=== PATIENT | male | born 1940 | race Caucasian/White ===

== ENCOUNTER 2017-04-28 09:14 | Inpatient (IN) | payer MEDICARE ==
[2017-04-28] VITALS (8 sets, daily range): BP systolic 124–174; BP diastolic 59–86; PULSE 73–89; RESP 15–27; TEMP 97.6–98.5; O2SAT 93–99
[~2017-04-28] VITALS: Ht 172.7 cm; Wt 45.7 kg
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
[2017-04-28] MEDS ORDERED: RESP: ALBUTEROL 2.5 MG/3 ML NEB (SCH) INH ONE (09:30)
[2017-04-28] MEDS ORDERED: SODIUM CHLORIDE 0.9% FLUSH 10 ML FLUSH IVF PRN (09:30)
[2017-04-28 09:40] LABS: AUTOMATED NEUTROPHIL # 4.7 TH/MM3 (1.8-7.7); BASOPHIL # 0.1 TH/MM3 (0-0.2); BASOPHIL % 0.8 % (0.0-2.0); EOSINOPHIL % 0.3 % (0.0-4.0); HEMATOCRIT 34.2 % (39.0-51.0); LYMPH % 16.9 % (9.0-44.0); LYMPHOCYTE # 1.1 TH/MM3 (1.0-4.8); MEAN CELL VOLUME 90.6 FL (80.0-100.0); MEAN CORPUSCULAR HGB CONC 30.9 % (32.0-36.0); MONO % 9.9 % (0.0-8.0); NEUT % 72.1 % (16.0-70.0); PLATELET COUNT 183 TH/MM3 (150-450); RED BLOOD COUNT 3.78 MIL/MM3 (4.50-5.90); RED CELL DISTRIBUTION WIDTH 19.4 % (11.6-17.2); WHITE BLOOD COUNT 6.5 TH/MM3 (4.0-11.0)
[2017-04-28 09:42] LABS: HEMO FLAGS AUTO DIFF
[2017-04-28] MEDS ORDERED: ASPIRIN 81 MG CHEW TAB PO ONE (09:45)
[2017-04-28 09:58] LABS: ANION GAP 12 MEQ/L (5-15); AST (GOT) 581 U/L (15-37); BICARBONATE 19.9 MEQ/L (21.0-32.0); BLOOD UREA NITROGEN 25 MG/DL (7-18); CHLORIDE 109 MEQ/L (98-107); GLOMERULAR FILTRATION RATE 74 ML/MIN (>89); POTASSIUM 4.6 MEQ/L (3.5-5.1); SODIUM (NA) 141 MEQ/L (136-145)
[2017-04-28 09:59] LABS: ALT (GPT) 440 U/L (12-78)
[2017-04-28 10:02] LABS: APTT (PATIENT) 27.5 SEC (24.3-30.1); INTERNATIONAL NORMALIZED RATIO 1.6 RATIO; PROTHROMBIN TIME - PATIENT 18.6 SEC (9.8-11.6)
[2017-04-28 10:03] LABS: ALKALINE PHOSPHATASE 789 U/L (45-117); CREATINE KINASE 183 U/L (39-308); TOTAL BILIRUBIN ADULT 1.1 MG/DL (0.2-1.0)
--- NOTE | 2017-04-28 10:03 | RADRPT ---
EXAM DATE/TIME: 04/28/2017 09:33 [facility] COMPARISON: No previous studies available for comparison. INDICATIONS : Short of breath. MEDICAL HISTORY : None. SURGICAL HISTORY : None. ENCOUNTER: Initial ACUITY: 1 month PAIN SCORE: 0/10 LOCATION: Bilateral chest FINDINGS: The heart is enlarged. Bibasilar patchiness (left worse than right) is noted consistent with atelect asis and/or infiltrates. CONCLUSION: 1. Bibasilar patchiness (left worse than right) consistent with atelectasis and/or pneumonia. Clinic al correlation is recommended. 2. Cardiomegaly. Jorge Alberto Ascencio MD on April 28, 2017 at 9:56 Board Certified Radiologist. This report was verified electronically.
[2017-04-28 10:17] LABS: BANDS 12 % (0-6); BASOPHILS 1 % (0-2); CORRECTED NUCLEATED RBC 2 /100 WBC (0-0); EOSINOPHILS 2 % (0-4); METAMYELOCYTES 1 % (0-1); NEUTROPHIL # MANUAL DIFF 5.5 TH/MM3 (1.8-7.7); POLYS (SEG NEUTROPHILS) 72 % (16-70); WBC DIFF SAMPLE 100
[2017-04-28 10:18] LABS: KERATOCYTES OCC (NORMAL); OVALOCYTES 1+ (NORMAL); PLATELET ESTIMATE SMEAR NORMAL (NORMAL); PLATELET MORPHOLOGY NORMAL (NORMAL)
[2017-04-28 10:19] LABS: SCAN/DIFF FINAL DIFF MANUAL
[2017-04-28 10:22] LABS: CKMB 4.6 NG/ML (0.5-3.6)
[2017-04-28] MEDS ORDERED: IOHEXOL 350 MG/ML 10 ML VIAL (for RAD DIAG) IVCONTRAST ONE (11:20)
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
--- NOTE | 2017-04-28 11:59 | RADRPT ---
EXAM DATE/TIME: 04/28/2017 11:11 [facility] COMPARISON: No previous studies available for comparison. INDICATIONS : Shortness of breath and abdomen pain IV CONTRAST: 90 cc Omnipaque 350 (iohexol) IV ; Cumulative dose for multiple exams. RADIATION DOSE: 21.15 CTDIvol (mGy) MEDICAL HISTORY : Carcinoma, prostate. Hypertension. SURGICAL HISTORY : None. ENCOUNTER: Initial ACUITY: 1 month PAIN SCALE: 5/10 LOCATION: Bilateral chest TECHNIQUE: Volumetric scanning of the chest was performed using a pulmonary embolism protocol MIP images were re constructed. Using automated exposure control and adjustment of the mA and/or kV according to patien t size, radiation dose was kept as low as reasonably achievable to obtain optimal diagnostic quality images. DICOM format image data is available electronically for review and comparison. Follow-up recommendations for detected pulmonary nodules are based at a minimum on nodule size and pa tient risk factors according to Fleischner Society Guidelines. FINDINGS: Diffuse sclerosis is noted throughout the visualized osseous structures of the thorax indicating scle rotic metastases until proven otherwise. There is no evidence of pulmonary embolism. Small to moderate sized pleural effusions with adjacent compressive atelectasis are noted. No pulmonary nodule or mass is noted. No mediastin al, hilar or axillary lymphadenopathy is noted. Coronary artery calcifications are noted. The heart is enlarged. Scattered fibrotic scarring is noted bilaterally. There is a metallic foreign body within the posteromedial a spect of the left pleural space. CONCLUSION: 1. Diffuse sclerosis involving the bony thorax indicating diffuse sclerotic metastases until proven otherwise. Clinical correlation is recommended. 2. Small to moderate sized bilateral pleural effusions with adjacent compressive atelectasis. 3. Cardiomegaly and coronary artery calcifications. 4. Scattered fibrotic scarring bilaterally. 5. Metallic foreign body within the posteromedial aspect of the left pleural space. Jorge Alberto Ascencio MD on April 28, 2017 at 11:35 Board Certified Radiologist. This report was verified electronically.
[2017-04-28] MEDS ORDERED: NALOXONE HCL 0.4 MG/ML AMP IV PUSH PRN (12:30)
[2017-04-28] MEDS ORDERED: MAGNESIUM HYDROXIDE SUSP 30 ML CUP PO PRN (12:30)
[2017-04-28] MEDS ORDERED: ACETAMINOPHEN 325 MG TAB PO PRN (12:30)
[2017-04-28] MEDS ORDERED: BISACODYL 10 MG SUPP RECTAL PRN (12:30)
[2017-04-28] MEDS ORDERED: ONDANSETRON HCL 4 MG/2 ML VIAL IVP PRN (12:30)
[2017-04-28] MEDS ORDERED: RESP: ALBUTEROL 2.5 MG/IPRATROPIUM 0.5 MG NEB (PRN) NEB (12:30)
[2017-04-28] MEDS ORDERED: SENNOSIDES 8.6 MG TAB PO PRN (12:30)
[2017-04-28] MEDS ORDERED: LACTULOSE SYRUP 20 GM/30 ML CUP PO PRN (12:30)
--- NOTE | 2017-04-28 13:09 | HHI.HP ---
HPI Service [facility] Primary Care Physician No Primary Care Physician Admission Diagnosis metastatic disease, dyspnea, elevated troponin, abnormal EKG Diagnoses: Chief Complaint: Shortness of breath Travel History International Travel<30 Days: No Contact w/Intl Traveler <30 Da: No Traveled to Known Affected Are: No History of Present Illness Written by Javier Roman, acting as scribe for Dr. Sawant on 04/28/17 at 13:09. 76-year-old male with a past medical history of prostate cancer who presented for shortness of breath. For the past month and half the patient has been having shortness of breath and dyspnea on exertion that has been getting progressively worse to where he can only walk a few steps before becoming dyspneic and weak. His only past medical history is prostate cancer for which he had a prostatectomy done in 2008 and stopped seeing doctors about 2 or 3 months after that. The past 3 or 4 months he's lost about 20 or 25 pounds. He' s been having cough with white and clear phlegm. He denies any lower extremity or abdominal swelling. He denies any pain currently, occasionally has back pain with working. He denies any chest pain, lightheadedness, palpitations, sweating. He denies any numbness or tingling. He did have an episode of vomiting yesterday 1, no nausea today. He feels that he's been choking on food because of his cough. His urine has been dark. Review of Systems Except as stated in HPI: all other systems reviewed are Neg Past Family Social History Past Medical History Prostate cancer Past Surgical History Prostatectomy in 2008 Reported Medications None Allergies: Coded Allergies: No Known Allergies (Verified , 06/25/15) Active Ordered Medications Current Medications Medications (Trade) Dose Ordered Sig/Mitul Route Start Time Stop Time Status Last Admin (NS Flush) 2 ml UNSCH PRN IV FLUSH 04/28/17 13:00 (NS Flush) 2 ml BID IV FLUSH 04/28/17 21:00 (Tylenol) 650 mg Q4H PRN PO 04/28/17 12:30 (Zofran Inj) 4 mg Q6H PRN IVP 04/28/17 12:30 (Narcan Inj) 0.4 mg UNSCH PRN IV PUSH 04/28/17 12:30 (Jackie-Colace) 1 tab BID PO 04/28/17 21:00 (Milk Of Magnesia Liq) 30 ml Q12H PRN PO 04/28/17 12:30 (Senokot) 17.2 mg Q12H PRN PO 04/28/17 12:30 (Dulcolax Supp) 10 mg DAILY PRN RECTAL 04/28/17 12:30 (Lactulose Liq) 30 ml DAILY PRN PO 04/28/17 12:30 (Duoneb Neb) 1 ampule Q6HR WHILE AWAKE NEB NEB 04/28/17 14:00 (Duoneb Neb) 1 ampule Q2HR NEB PRN NEB 04/28/17 12:30 (Lasix) 20 mg BID@09,18 PO 04/28/17 18:00 Family History Father was a smoker and of lung cancer and emphysema Mother is 91 and healthy Social History Hasn't smoked for the past 3 weeks. Smoked 3/4 packs per day since age 60 when he started smoking. No alcohol use for the past 8 years, previously drank nightly Denies any drug use Physical Exam Vital Signs Vital Signs Date Time Temp Pulse Resp B/P (MAP) Pulse Ox O2 Delivery O2 Flow Rate FiO2 04/28/17 09:22 99 Room Air 04/28/17 09:22 57 27 98 Nasal Cannula 2.00 04/28/17 09:22 98 Room Air 04/28/17 09:19 97.6 83 27 153/86 (108) Physical Exam GENERAL: Pleasant. Well-developed. Cachectic appearing elderly male. In no acute distress. SKIN: Warm and dry. No lesions noted. HEENT: Normocephalic. Pupils equal and round. Mucous membranes pink and moist. CARDIOVASCULAR: Regular rate and rhythm. No murmur appreciated. RESPIRATORY: No accessory muscle use. Clear to auscultation. Diminished breath sounds in the bilateral bases, left worse than right. No wheezing. GASTROINTESTINAL: Abdomen soft, non-tender, nondistended. Bowel sounds x4. MUSCULOSKELETAL: No obvious deformities. No clubbing or cyanosis. No edema. NEUROLOGICAL: Awake and alert. No focal neurological deficits. Moves upper and lower extremities spontaneously. Normal speech. PSYCHIATRIC: Appropriate mood and affect; insight and judgment normal. Laboratory Laboratory Tests Test 04/28/17 09:30 White Blood Count 6.5 Red Blood Count 3.78 Hemoglobin 10.6 Hematocrit 34.2 Mean Corpuscular Volume 90.6 Mean Corpuscular Hemoglobin 28.0 Mean Corpuscular Hemoglobin Concent 30.9 Red Cell Distribution Width 19.4 Platelet Count 183 Mean Platelet Volume 8.2 Neutrophils (%) (Auto) 72.1 Lymphocytes (%) (Auto) 16.9 Monocytes (%) (Auto) 9.9 Eosinophils (%) (Auto) 0.3 Basophils (%) (Auto) 0.8 Neutrophils # (Auto) 4.7 Lymphocytes # (Auto) 1.1 Monocytes # (Auto) 0.6 Eosinophils # (Auto) 0.0 Basophils # (Auto) 0.1 CBC Comment AUTO DIFF Differential Total Cells Counted 100 Neutrophils % (Manual) 72 Band Neutrophils % 12 Lymphocytes % 7 Monocytes % 5 Eosinophils % 2 Basophils % 1 Neutrophils # (Manual) 5.5 Metamyelocytes 1 Nucleated Red Blood Cells 2 Differential Comment FINAL DIFF MANUAL Platelet Estimate NORMAL Platelet Morphology Comment NORMAL Ovalocytes 1+ Keratocytes OCC Prothrombin Time 18.6 Prothromb Time International Ratio 1.6 Activated Partial Thromboplast Time 27.5 D-Dimer Quantitative (PE/DVT) 22.70 Blood Urea Nitrogen 25 Creatinine 0.99 Random Glucose 93 Total Protein 6.2 Albumin 2.6 Calcium Level 8.5 Alkaline Phosphatase 789 Aspartate Amino Transf (AST/SGOT) 581 Alanine Aminotransferase (ALT/SGPT) 440 Total Bilirubin 1.1 Sodium Level 141 Potassium Level 4.6 Chloride Level 109 Carbon Dioxide Level 19.9 Anion Gap 12 Estimat Glomerular Filtration Rate 74 Total Creatine Kinase 183 Creatine Kinase MB 4.6 Troponin I 0.54 B-Type Natriuretic Peptide 3698 Result Diagram: 04/28/1730 04/28/1730 Imaging Last Impressions Abdomen/Pelvis CT 04/28/17 1006 Signed Impressions: Service Date/Time: Friday, April 28, 2017 11:11 - CONCLUSION: 1.Diffuse sclerosis involving the visualized bony skeleton suggestive of diffuse metastatic disease until proven otherwise. 2. Moderate-sized pleural effusion with adjacent compressive atelectasis. 3. Tiny metallic foreign body within the posteromedial aspect of the left pleural space. 4. Some ascites within the abdomen and pelvis. 5. Anasarca. 6. Enlarged prostate. 7. 15 mm right renal cyst. Jorge Alberto Ascencio MD Chest X-Ray 04/28/17927 Signed Impressions: Service Date/Time: Friday, April 28, 2017 09:33 - CONCLUSION: 1. Bibasilar patchiness (left worse than right) consistent with atelectasis and/or pneumonia. Clinical correlation is recommended. 2. Cardiomegaly. Jorge Alberto Ascencio MD CT Angiography 04/28/17927 Signed Impressions: Service Date/Time: Friday, April 28, 2017 11:11 - CONCLUSION: 1. Diffuse sclerosis involving the bony thorax indicating diffuse sclerotic metastases until proven otherwise. Clinical correlation is recommended. 2. Small to moderate sized bilateral pleural effusions with adjacent compressive atelectasis. 3. Cardiomegaly and coronary artery calcifications. 4. Scattered fibrotic scarring bilaterally. 5. Metallic foreign body within the posteromedial aspect of the left pleural space. Jorge Alberto Ascencio MD Caprini VTE Risk Assessment Caprini VTE Risk Assessment: Mod/High Risk (score >= 2) VTE Pharm Contraindication: Coagulopathy,INR elevated Caprini Risk Assessment Model Point Value = 1 Point Value = 2 Point Value = 3 Point Value = 5 Age 41-60 Minor surgery BMI > 25 kg/m2 Swollen legs Varicose veins or History of unexplained or recurrent spontaneous Oral contraceptives or hormone replacement Sepsis (< 1 month) Serious lung disease, including pneumonia (< 1 month) Abnormal pulmonary function Acute myocardial infarction Congestive heart failure (< 1 month) History of inflammatory bowel disease Medical patient at bed rest Age 61-74 Arthroscopic surgery Major open surgery (> 45 min) Laparoscopic surgery (> 45 min) Malignancy Confined to bed (> 72 hours) Immobilizing plaster cast Central venous access Age >= 75 History of VTE Family history of VTE Factor V Leiden Prothrombin [id number] Lupus anticoagulant Anticardiolipin antibodies Elevated serum homocysteine Heparin-induced thrombocytopenia Other congenital or acquired thrombophilia Stroke (< 1 month) Elective arthroplasty Hip, pelvis, or leg fracture Acute spinal cord injury (< 1 month) Prophylaxis Regimen Total Risk Factor Score Risk Level Prophylaxis Regimen 0-1 Low Early ambulation 2 Moderate Order ONE of the following: *Sequential Compression Device (SCD) *Heparin 5000 units SQ BID 3-4 Higher Order ONE of the following medications: *Heparin 5000 units SQ TID *Enoxaparin/Lovenox 40 mg SQ daily (WT < 150 kg, CrCl > 30 mL/min) *Enoxaparin/Lovenox 30 mg SQ daily (WT < 150 kg, CrCl > 10-29 mL/min) *Enoxaparin/Lovenox 30 mg SQ BID (WT < 150 kg, CrCl > 30 mL/min) AND/OR *Sequential Compression Device (SCD) 5 or more Highest Order ONE of the following medications: *Heparin 5000 units SQ TID (Preferred with Epidurals) *Enoxaparin/Lovenox 40 mg SQ daily (WT < 150 kg, CrCl > 30 mL/min) *Enoxaparin/Lovenox 30 mg SQ daily (WT < 150 kg, CrCl > 10-29 mL/min) *Enoxaparin/Lovenox 30 mg SQ BID (WT < 150 kg, CrCl > 30 mL/min) AND *Sequential Compression Device (SCD) Assessment and Plan Assessment and Plan 76-year-old male with a past medical history of prostate cancer who presented for shortness of breath Shortness of breath/dyspnea on exertion: Reviewed: D-dimer elevated, no PE. Chest CT shows bilateral pleural effusions with compressive atelectasis, cardiomegaly and coronary artery calcifications, scattered fibrotic scarring bilaterally. BNP 3698. Troponin 0.54. EKG with sinus dysrhythmia, lateral T-wave inversions, LVH criteria. -Oral diuresis and monitor renal function -Scheduled and as needed nebulizers. Supplemental O2 as needed. Incentive spirometry. -Trend troponins and check echocardiogram -Consult cardiology and pulmonology -Monitor on telemetry -Received aspirin in the ED. Caution with antiplatelet/anticoagulation and coagulopathy, INR 1.6. Bony metastasis: History of prostate cancer with poor outpatient follow-up after prostatectomy. No complaints of pain at this time. Reviewed: CT chest, abdomen, and pelvis with diffuse sclerosis involving the visualized bony skeleton suggestive of diffuse metastatic disease until proven otherwise; enlarged prostate. -Consult oncology and palliative care Liver failure/ascites/coagulopathy: Reviewed: Elevation of bilirubin, AST, ALT, alkaline phosphatase, INR. Abdominal CT shows some ascites within the abdomen and pelvis and anasarca. -Consult GI Severe protein calorie malnutrition: BMI 14.5. Secondary to the above. Reviewed: Albumin 2.6, total protein 6.2. -Check pre-albumin and consult nutrition Dark urine: Possibly secondary to liver failure. Afebrile. -Check UA Dysphagia: Reports choking on food, but attributes this to cough from "fluid on my lungs". -GI consulted as above -Consult speech therapy DVT prophylaxis: SCDs. Chemical prophylaxis contraindicated with coagulopathy. This note was transcribed by GERI Wagner. I, Dr. Tia Sawant personally performed the history, physical exam, and medical decision making; and confirmed the accuracy of the information in the transcribed note. Authenticated by Dr. Tia Sawant on 04/28/17 at 13:09. Discussed Condition With Patient, ED staff Javier Roman Apr 28, 2017 13:09 Tia Sawant MD Apr 28, 2017 15:21
[2017-04-28] MEDS: RESP: ALBUTEROL 2.5 MG/IPRATROPIUM 0.5 MG NEB (SCH) NEB ×2 (13:47→19:58)
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
--- NOTE | 2017-04-28 17:11 | MB ---
cc: NOEMI HILLMAN M.D. DATE OF CONSULTATION: 04/28/2017. REASON FOR CONSULTATION: Increased troponin. Shortness of breath. HISTORY OF PRESENT ILLNESS: Mr. Green is a 76-year-old gentleman with history of prostate cancer. He stopped smoking around three weeks ago. He was admitted through the emergency room due to shortness of breath. During the hospitalization, the gentleman's troponin increased. I was consulted for further evaluation and management. The chart was reviewed. The patient was evaluated. ALLERGIES: NONE. SOCIAL HISTORY: The patient used to smoke around 3/4 pack of cigarettes a day and stopped around two or three weeks ago. FAMILY HISTORY: Noncontributory to his current medical condition. MEDICATIONS: The gentleman is currently on: 1. Acetaminophen. 2. Aspirin. 3. Lasix 20 milligrams p.o. twice a day. REVIEW OF SYSTEMS: He currently refers no chest pain. No chest discomfort. Some shortness of breath but no fever. PHYSICAL EXAMINATION: GENERAL: Alert, fully oriented, cachectic. VITAL SIGNS: His blood pressure is 127/64, pulse 89, respiratory rate 20. LUNGS: Ventilated. CARDIOVASCULAR: S1-S2 regular. No gallop. ABDOMEN: Abdomen soft, no mass. No bruits. EXTREMITIES: No edema. EKGS: Electrocardiogram shows sinus rhythm and diffuse S-T changes. The high voltage is because of the patient's cachexia. LABS: Hemoglobin 10.6, white blood cells 6.5. Potassium 4.6. Creatinine 0.99. Troponin 0.55. BNP close to 3700. AST 581, ALT 440. ASSESSMENT AND RECOMMENDATIONS: Mr. Green is currently stable. He is still has shortness of breath on minimal activity. Troponin increased. There are no acute S-T and T-wave changes on electrocardiogram. The gentleman stopped seeing doctors for at least six months. The last hospitalization was around two years ago. There is a question about if there is still prostate cancer. The gentleman has had a prostatectomy. His troponin is elevated but at the same time, liver enzymes are high. My recommendation is a nuclear stress study. Also he will need an echocardiogram to evaluate wall motion and valvular function. Medical management for now and based on the results, further decision will be taken. The patient will need Lovenox subcutaneous. MD TITI Tay /4:04 PM /4:57 PM
[2017-04-28] MEDS: FUROSEMIDE 20 MG TAB PO SCH (17:21)
--- NOTE | 2017-04-28 17:24 | RADRPT ---
EXAM DATE/TIME: 04/28/2017 16:57 [facility] COMPARISON: No previous studies available for comparison. INDICATIONS : Marking for thoracentesis. MEDICAL HISTORY : Hypertension. Carcinoma, prostate. Transient ischemic attack. ETOH abuse. SURGICAL HISTORY : Prostatectomy. ENCOUNTER: Initial ACUITY: 3 days PAIN SCORE: 0/10 LOCATION: Left chest MEASUREMENTS: SKIN TO PARIETAL PLEURA: 1.0 cm SKIN TO MAX SAFE DEPTH: 4.0 cm ESTIMATED FLUID VOLUME: 805.6 cc FLUID COMPOSITION: simple but some scattered specular echoes FINDINGS: Pleural effusion as above. CONCLUSION: Left pleural effusion with percutaneous marking. Scott Clanyc MD on April 28, 2017 at 17:22 Board Certified Radiologist. This report was verified electronically.
--- NOTE | 2017-04-28 17:44 | RADRPT ---
EXAM DATE/TIME: 04/28/2017 16:54 [facility] COMPARISON: CT ABDOMEN & PELVIS W CONTRAST, April 28, 2017, 11:11. INDICATIONS : Evaluate ascites. MEDICAL HISTORY : Hypertension. Carcinoma, prostate. Transient ischemic attack. ETOH abuse. SURGICAL HISTORY : Prostatectomy. ENCOUNTER: Initial ACUITY: 1 day PAIN SCORE: 0/10 LOCATION: Abdomen. FINDINGS: Imaging of the abdomen and pelvis was performed to evaluate for ascites for possible paracentesis. N o focal collections of drainable fluid seen. CONCLUSION: Insufficient fluid for paracentesis. Scott Clancy MD on April 28, 2017 at 17:41 Board Certified Radiologist. This report was verified electronically.
[2017-04-28] MEDS: DOCUSATE SODIUM 50 MG/SENNA 8.6 MG TAB PO SCH (20:34)
[2017-04-28] MEDS: SODIUM CHLORIDE 0.9% FLUSH 10 ML FLUSH IV FLUSH SCH (20:34)
[2017-04-28 21:17] LABS: RETIC % 2.2 % (0.4-3.0)
[2017-04-28 21:18] LABS: REVIEW FLAG FINAL
[2017-04-28 22:22] LABS: CREATINE KINASE 165 U/L (39-308); FERRITIN 1805 NG/ML (26-388); LDH SERUM 1113 U/L (87-241); TRANSFERRIN IRON PROFILE 137 MG/DL (200-360)
--- NOTE | 2017-04-28 23:46 | RADRPT ---
EXAM DATE/TIME: 04/28/2017 21:39 [facility] COMPARISON: No previous studies available for comparison. INDICATIONS : Elevated liver enzymes. MEDICAL HISTORY : Hypertension. Carcinoma, prostate. Transient ischemic attack. ETOH abuse. SURGICAL HISTORY : Prostatectomy. ENCOUNTER: Initial ACUITY: 1 day PAIN SCORE: 0/10 LOCATION: Abdomen. MEASUREMENTS: LIVER: 12.9 cm length COMMON DUCT: 4 mm RIGHT KIDNEY: 9.7 x 4.4 x 4.2 cm LEFT KIDNEY: 9.7 x 4.4 x 4.3 cm SPLEEN: 8.1 cm length AORTA: 2.1cm maximal FINDINGS: LIVER: Normal echotexture without focal lesion or ductal dilatation. COMMON DUCT: No intraluminal mass or stone visualized. GALLBLADDER: Contains no stones, demonstrates no wall thickening or pericholecystic fluid. PANCREAS: The visualized portions are within normal limits. RIGHT KIDNEY: Nonobstructing 5 mm lower pole stone. Benign 14 mm upper pole cyst. LEFT KIDNEY: No hydronephrosis, stone or mass. SPLEEN: No focal lesion. AORTA: Non aneurysmal. IVC: Within normal limits. Bilateral pleural effusions and very small abdominal ascites noted. CONCLUSION: 1. No acute abnormality seen of the liver, gallbladder or biliary tree. 2. Benign cyst and a possible nonobstructing stone of the right kidney. 3. Bilateral pleural effusions. Small ascites. Andrea Honeycutt MD on April 28, 2017 at 23:43 Board Certified Radiologist. This report was verified electronically.
[2017-04-29] VITALS (14 sets, daily range): BP systolic 123–166; BP diastolic 70–88; PULSE 74–125; RESP 18–22; TEMP 97–98.1; O2SAT 95–100
[2017-04-29] MEDS: DOCUSATE SODIUM 50 MG/SENNA 8.6 MG TAB PO SCH ×2 (08:23→21:06)
[2017-04-29] MEDS: METOPROLOL TARTRATE 25 MG TAB PO SCH ×2 (08:23→21:06)
[2017-04-29] MEDS: FUROSEMIDE 20 MG TAB PO SCH ×2 (08:23→17:10)
[2017-04-29] MEDS: ASPIRIN EC 81 MG TABEC PO SCH (08:23)
[2017-04-29] MEDS: RESP: ALBUTEROL 2.5 MG/IPRATROPIUM 0.5 MG NEB (SCH) NEB ×3 (08:26→19:28)
[2017-04-29] MEDS: SODIUM CHLORIDE 0.9% FLUSH 10 ML FLUSH IV FLUSH SCH ×2 (08:28→21:05)
[2017-04-29 08:50] LABS: AUTOMATED NEUTROPHIL # 4.3 TH/MM3 (1.8-7.7); BASOPHIL % 0.5 % (0.0-2.0); EOSINOPHIL # 0.1 TH/MM3 (0-0.4); EOSINOPHIL % 0.9 % (0.0-4.0); HEMATOCRIT 32.3 % (39.0-51.0); LYMPH % 17.2 % (9.0-44.0); LYMPHOCYTE # 1.1 TH/MM3 (1.0-4.8); MEAN CELL VOLUME 90.6 FL (80.0-100.0); MEAN CORPUSCULAR HEMOGLOBIN 28.6 PG (27.0-34.0); MEAN CORPUSCULAR HGB CONC 31.5 % (32.0-36.0); MONO % 10.8 % (0.0-8.0); NEUT % 70.6 % (16.0-70.0); PLATELET COUNT 148 TH/MM3 (150-450); RED BLOOD COUNT 3.57 MIL/MM3 (4.50-5.90); RED CELL DISTRIBUTION WIDTH 19.6 % (11.6-17.2); WHITE BLOOD COUNT 6.1 TH/MM3 (4.0-11.0)
[2017-04-29 08:55] LABS: INTERNATIONAL NORMALIZED RATIO 1.5 RATIO; PROTHROMBIN TIME - PATIENT 16.5 SEC (9.8-11.6)
[2017-04-29 08:59] LABS: HEMO FLAGS AUTO DIFF
[2017-04-29 09:17] LABS: ALKALINE PHOSPHATASE 745 U/L (45-117); ALT (GPT) 359 U/L (12-78); ANION GAP 10 MEQ/L (5-15); AST (GOT) 356 U/L (15-37); BICARBONATE 23.8 MEQ/L (21.0-32.0); BLOOD UREA NITROGEN 22 MG/DL (7-18); CHLORIDE 107 MEQ/L (98-107); GLOMERULAR FILTRATION RATE 77 ML/MIN (>89); POTASSIUM 3.5 MEQ/L (3.5-5.1); SODIUM (NA) 141 MEQ/L (136-145); TOTAL BILIRUBIN ADULT 0.9 MG/DL (0.2-1.0)
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
[2017-04-29 10:28] LABS: SCAN/DIFF AUTO DIFF CONFIRMED
--- NOTE | 2017-04-29 10:42 | RADRPT ---
EXAM DATE/TIME: 04/29/2017 08:45 [facility] COMPARISON: CT ABDOMEN & PELVIS W CONTRAST, April 28, 2017, 11:11. INDICATIONS : Abdominal pain. MEDICAL HISTORY : Carcinoma, prostate. Hypertension. SURGICAL HISTORY : Prostatectomy. ENCOUNTER: Initial ACUITY: 1 day PAIN SCORE: 5/10 LOCATION: Abdomen TECHNIQUE: Multiplanar, multisequence magnetic resonance imaging of the abdomen was performed. High-resolution 3D dataset was utilized to reconstruct maximum-intensity projection (MIP) images. FINDINGS: INTRAHEPATIC BILE DUCTS: Within normal limits. No significant anatomical variant is present. EXTRAHEPATIC BILE DUCTS: The common bile duct measures 6 mm. No stone or filling defect is identified. GALLBLADDER: No stones, wall thickening, or pericholecystic fluid. LIVER: Normal size and signal intensity. No concerning liver lesion is identified on this non-contrast exam. PANCREAS: The main pancreatic duct is normal in size. There is no significant anatomical variant. Signal inte nsity is within normal limits. No mass is visualized on this non-contrast exam. OTHER: The remaining visualized structures demonstrate no acute abnormality on this non-contrast exam. Moder ate-sized bilateral pleural effusions are noted. Extensive osseous metastatic disease is again noted. There is a stable 15 mm right renal cyst. Some ascites is noted within the abdomen. CONCLUSION: 1. No evidence of biliary ductal dilatation. 2. Extensive osseous metastatic disease. 3. Moderate-sized bilateral pleural effusions. 4. Stable 15 mm right renal cyst. 5. Some ascites within the abdomen. 6. No focal hepatic mass identified. Jorge Alberto Ascencio MD on April 29, 2017 at 10:36 Board Certified Radiologist. This report was verified electronically.
--- NOTE | 2017-04-29 11:35 | HHI.PR ---
Subjective Remarks Still tired Objective Vital Signs Date Time Temp Pulse Resp B/P (MAP) Pulse Ox O2 Delivery O2 Flow Rate FiO2 04/29/17 08:27 97 04/29/17 08:00 85 04/29/17 08:00 97.3 103 20 157/82 (107) 97 04/29/17 07:50 Room Air 04/29/17 04:00 98.1 94 19 166/83 (110) 95 04/29/17 04:00 Room Air 04/29/17 00:00 98.1 87 22 144/83 (103) 98 04/29/17 00:00 Room Air 04/28/17 20:01 98 21 04/28/17 20:00 98.5 73 21 124/59 (80) 94 04/28/17 20:00 Room Air 04/28/17 19:59 81 04/28/17 14:55 97.6 89 17 127/64 (85) 99 04/28/17 14:50 04/28/17 14:05 82 15 174/83 (113) 93 Room Air I/O 04/28/17 04/28/17 04/28/17 04/29/17 04/29/17 04/29/17 07:00 15:00 23:00 07:00 15:00 23:00 Intake Total 480 ml Balance 480 ml Intake Oral 480 ml # Voids 3 # Bowel Movements 0 Result Diagram: 04/29/17 0700 04/29/17 0800 Imaging Alert, fully oriented Lungs: ventilated Heart: S1, S2 regular, no gallop Abdomen: softy, no mass Ext: no edema Laboratory Tests Test 04/28/17 09:30 04/28/17 14:20 04/28/17 20:50 04/29/17 07:00 Red Blood Count 3.78 MIL/MM3 (4.50-5.90) 3.57 MIL/MM3 (4.50-5.90) Hemoglobin 10.6 GM/DL (13.0-17.0) 10.2 GM/DL (13.0-17.0) Hematocrit 34.2 % (39.0-51.0) 32.3 % (39.0-51.0) Mean Corpuscular Hemoglobin Concent 30.9 % (32.0-36.0) 31.5 % (32.0-36.0) Red Cell Distribution Width 19.4 % (11.6-17.2) 19.6 % (11.6-17.2) Neutrophils (%) (Auto) 72.1 % (16.0-70.0) 70.6 % (16.0-70.0) Monocytes (%) (Auto) 9.9 % (0.0-8.0) 10.8 % (0.0-8.0) Neutrophils % (Manual) 72 % (16-70) Band Neutrophils % 12 % (0-6) Lymphocytes % 7 % (9-44) Nucleated Red Blood Cells 2 /100 WBC (0-0) Ovalocytes 1+ (NORMAL) Prothrombin Time 18.6 SEC (9.8-11.6) 16.5 SEC (9.8-11.6) D-Dimer Quantitative (PE/DVT) 22.70 MG/L FEU (0.00-0.50) Blood Urea Nitrogen 25 MG/DL (7-18) Total Protein 6.2 GM/DL (6.4-8.2) Albumin 2.6 GM/DL (3.4-5.0) 2.6 GM/DL (3.4-5.0) Alkaline Phosphatase 789 U/L (45-117) Aspartate Amino Transf (AST/SGOT) 581 U/L (15-37) Alanine Aminotransferase (ALT/SGPT) 440 U/L (12-78) Total Bilirubin 1.1 MG/DL (0.2-1.0) Chloride Level 109 MEQ/L (98-107) Carbon Dioxide Level 19.9 MEQ/L (21.0-32.0) Estimat Glomerular Filtration Rate 74 ML/MIN (>89) Creatine Kinase MB 4.6 NG/ML (0.5-3.6) Troponin I 0.54 NG/ML (0.02-0.05) 0.55 NG/ML (0.02-0.05) 0.62 NG/ML (0.02-0.05) B-Type Natriuretic Peptide 3698 PG/ML (0-100) Prealbumin 9 MG/DL (20-40) Total Iron Binding Capacity 192 MCG/DL (250-450) Percent Iron Saturation 89.2 % (20-50) Ferritin 1805 NG/ML (26-388) Lactate Dehydrogenase 1113 U/L (87-241) Prostate Specific Antigen 99.69 NG/ML (0.00-4.00) Vitamin B12 Level 1445 PG/ML (193-986) Platelet Count 148 TH/MM3 (150-450) Test 04/29/17 08:00 Blood Urea Nitrogen 22 MG/DL (7-18) Total Protein 5.8 GM/DL (6.4-8.2) Albumin 2.5 GM/DL (3.4-5.0) Alkaline Phosphatase 745 U/L (45-117) Aspartate Amino Transf (AST/SGOT) 356 U/L (15-37) Alanine Aminotransferase (ALT/SGPT) 359 U/L (12-78) Estimat Glomerular Filtration Rate 77 ML/MIN (>89) Current Medications Medications (Trade) Dose Ordered Sig/Mitul Route Start Time Stop Time Status Last Admin (NS Flush) 2 ml UNSCH PRN IV FLUSH 04/28/17 13:00 (NS Flush) 2 ml BID IV FLUSH 04/28/17 21:00 04/29/17 08:28 (Tylenol) 650 mg Q4H PRN PO 04/28/17 12:30 (Zofran Inj) 4 mg Q6H PRN IVP 04/28/17 12:30 (Narcan Inj) 0.4 mg UNSCH PRN IV PUSH 04/28/17 12:30 (Jackie-Colace) 1 tab BID PO 04/28/17 21:00 04/29/17 08:23 (Milk Of Magnesia Liq) 30 ml Q12H PRN PO 04/28/17 12:30 (Senokot) 17.2 mg Q12H PRN PO 04/28/17 12:30 (Dulcolax Supp) 10 mg DAILY PRN RECTAL 04/28/17 12:30 (Lactulose Liq) 30 ml DAILY PRN PO 04/28/17 12:30 (Duoneb Neb) 1 ampule Q6HR WHILE AWAKE NEB NEB 04/28/17 14:00 04/29/17 08:26 (Duoneb Neb) 1 ampule Q2HR NEB PRN NEB 04/28/17 12:30 (Lasix) 20 mg BID@09,18 PO 04/28/17 18:00 04/29/17 08:23 (Ecotrin Ec) 162 mg DAILY PO 04/29/17 09:00 04/29/17 08:23 (Lopressor) 12.5 mg Q12HR PO 04/29/17 09:00 04/29/17 08:23 Assessment and Plan Problem List: (1) Shortness of breath ICD Codes: R06.02 - Shortness of breath Plan: Improving. Still with minimal activity (2) Dyspnea ICD Codes: R06.00 - Dyspnea, unspecified Status: Acute Plan: PSA high. Metastasis disease suspected Bone scan requested Stress study pending Condition of care Case discussed with patient Problem Qualifiers (1) Dyspnea: Qualified Codes: R06.09 - Other forms of dyspnea Zahra Cooper MD Apr 29, 2017 11:35
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
--- NOTE | 2017-04-29 15:52 | HHI.PR ---
Subjective Remarks 76 YOWM with metastatic Prostate ca, Pl eff, Nicotine use had Left TC, 750 cc fluid removed Feels breathing better Objective Vital Signs Vital Signs Date Time Temp Pulse Resp B/P (MAP) Pulse Ox O2 Delivery O2 Flow Rate FiO2 04/29/17 12:00 97.2 78 20 129/71 (90) 100 04/29/17 08:27 97 04/29/17 08:00 85 04/29/17 08:00 97.3 103 20 157/82 (107) 97 04/29/17 07:50 Room Air 04/29/17 04:00 98.1 94 19 166/83 (110) 95 04/29/17 04:00 Room Air 04/29/17 00:00 98.1 87 22 144/83 (103) 98 04/29/17 00:00 Room Air 04/28/17 20:01 98 21 04/28/17 20:00 98.5 73 21 124/59 (80) 94 04/28/17 20:00 Room Air 04/28/17 19:59 81 I/O 04/28/17 04/28/17 04/28/17 04/29/17 04/29/17 04/29/17 07:00 15:00 23:00 07:00 15:00 23:00 Intake Total 480 ml Output Total 480 ml Balance 480 ml -480 ml Intake Oral 480 ml Output Urine Total 480 ml # Voids 3 # Bowel Movements 0 Result Diagram: 04/29/17 0700 04/29/17 0800 Objective Remarks GENERAL: MBMN WM, NAD SKIN: Warm and dry. HEAD: Normocephalic. EYES: No scleral icterus. No injection or drainage. NECK: Supple, trachea midline. No JVD or lymphadenopathy. CARDIOVASCULAR: Regular rate and rhythm without murmurs, gallops, or rubs. RESPIRATORY: Breath sounds equal bilaterally. No accessory muscle use. GASTROINTESTINAL: Abdomen soft, non-tender, nondistended. MUSCULOSKELETAL: No cyanosis, or edema. BACK: Nontender without obvious deformity. No CVA tenderness. A/P Assessment and Plan Left Pl effusion, s/p TC COPD Metastatic Prostate ca PLAN Post TC CXR Check pl fluid results Stable on RA Brian Adams MD Apr 29, 2017 15:52
[2017-04-29] MEDS ORDERED: HEPARIN SODIUM - IV 10,000 UNITS/10 ML VIAL OTHER ONE (16:15)
[2017-04-29 16:33] LABS: TOTAL PROTEIN,PLEURAL FLUID 1.1 GM/DL
--- NOTE | 2017-04-29 16:57 | MR ---
cc: ALLISON PEARSON DATE: 04/29/2017 PROCEDURE: Left thoracentesis. PREOPERATIVE DIAGNOSIS: Left pleural effusion. DESCRIPTION OF THE PROCEDURE IN DETAIL: Informed consent was obtained from the patient. The procedure and the complications including complications of anesthesia, pneumothorax requiring chest tube, bleeding complication due to the blood vessels, lungs, nerves, arrhythmia, were explained and he consented for the procedure. DESCRIPTION OF THE PROCEDURE IN DETAIL: The left side of the chest was monitored with ultrasound. It was cleaned with Chloraprep and 1% lidocaine infiltration anesthesia. We used a 16-gauge Angiocath and thoracentesis was done and about 750 mL of yellow clear fluid was obtained. When the fluid stopped coming, the procedure was terminated. He tolerated the procedure well. Postprocedure chest x-ray ordered to rule out pneumothorax. Pleural fluid was sent for protein, glucose, LDH, cell count and differential. Neck: Supple. Pleural fluid sent for protein, glucose, LDH, cell count and differential. Allison Pearson MD ADA/JCC /3:47 PM /4:49 PM
--- NOTE | 2017-04-29 17:07 | RADRPT ---
EXAM DATE/TIME: 04/29/2017 16:53 [facility] COMPARISON: CHEST SINGLE AP, April 28, 2017, 9:33. INDICATIONS : Post thoracentesis. MEDICAL HISTORY : Hypertension. Carcinoma, prostatic. SURGICAL HISTORY : None. ENCOUNTER: Subsequent ACUITY: 1 day PAIN SCORE: 0/10 LOCATION: Bilateral chest FINDINGS: A single AP erect portable view of the chest was obtained again demonstrates patchy opacities left betty ng base with obscuration of the left hemidiaphragm and apparent mild blunting of the costophrenic ang le. There is mild hazy opacity in the right lung is well. The heart size appears mildly prominent. Th e bony structures are stable with diffuse sclerosis. There are multiple overlying electrocardiogram l mary. CONCLUSION: 1. Diffuse patchy sclerosis of the bony structures are again noted of concern for sclerotic metastasi s. 2. Patchy opacity remains at the left lung base with apparent small effusion. 3. Hazy opacity in the right lung with no focal consolidation. Jd Lane MD on April 29, 2017 at 17:01 Board Certified Radiologist. This report was verified electronically.
--- NOTE | 2017-04-29 18:08 | ECHRPT ---
Indication: HEART FAILURE CONCLUSIONS Mildly dilated left ventricle. Wall thickness is normal. The left ventricular systolic function is severely reduced with an estimated ejection fraction in th e range of 20%. The right ventricular systoilc function is moderately decreased. The left atrial size is upper limits of normal. Moderate mitral valve regurgitation. [id number] aortic valve regurgitation. Aortic valve sclerosis is present. There is mild tricuspid valve regurgitation. There is estimated mild pulmonary hypertension present ( 41 mmHg). A moderate left sided pleural effusion is noted. BP: / HR: Rhythm: MEASUREMENTS (Male / Female) Normal Values Technical Quality:Good 2D ECHO LV Diastolic Diameter PLAX 5.3 cm 4.2 - 5.9 / 3.9 - 5.3 cm LV Systolic Diameter PLAX 4.8 cm IVS Diastolic Thickness 1.1 cm 0.6 - 1.0 / 0.6 - 0.9 cm LVPW Diastolic Thickness 0.7 cm 0.6 - 1.0 / 0.6 - 0.9 cm LV Relative Wall Thickness 0.3 RV Internal Dim ED PLAX 2.6 cm LA Systolic Diameter LX 3.5 cm 3.0 - 4.0 / 2.7 - 3.8 cm LV Ejection Fraction MOD 4C 25.2 % LV Ejection Fraction 4C AL 24.7 % DOPPLER MR Peak Velocity 514.0 cm/s MR Peak Gradient 105.7 mmHg Mitral E Point Velocity 60.7 cm/s Mitral A Point Velocity 37.5 cm/s Mitral E to A Ratio 1.6 TR Peak Velocity 280.0 cm/s TR Peak Gradient 31.4 mmHg Right Atrial Pressure 10.0 mmHg Pulmonary Artery Systolic Pressu 41.4 mmHg Right Ventricular Systolic Press 41.4 mmHg FINDINGS LEFT VENTRICLE Mildly dilated left ventricle. Wall thickness is normal. The left ventricular systolic function is severely reduced with an estimated ejection fraction in th e range of 20%. RIGHT VENTRICLE The right ventricular systoilc function is moderately decreased. LEFT ATRIUM The left atrial size is upper limits of normal. RIGHT ATRIUM The right atrial size is normal. ATRIAL SEPTUM Normal atrial septal thickness without atrial level shunting by limited color doppler interrogation. AORTA The aortic root and proximal ascending aorta are normal in size on limited imaging. MITRAL VALVE Moderate mitral valve regurgitation. AORTIC VALVE Isyd-[id number] aortic valve regurgitation. Aortic valve sclerosis is present. TRICUSPID VALVE There is mild tricuspid valve regurgitation. There is estimated mild pulmonary hypertension present ( 41 mmHg). PULMONARY VALVE No pulmonary valve regurgitation or stenosis. VESSELS The inferior vena cava is normal in size. PERICARDIUM A moderate left sided pleural effusion is noted. Zahra Cooper MD (Electronically Signed) Final Date:29 April 2017 18:07
[2017-04-29 19:06] LABS: PLEURAL FLUID LYMPHS 19 %
--- NOTE | 2017-04-29 20:49 | EKG ---
Date Performed: 04/28/2017 Time Performed: 18:50:16 PTAGE: 76 years EKG: Sinus rhythm WITH MARKED SINUS ARRHYTHMIA POSSIBLE LEFT ATRIAL ENLARGEMENT ST DEVIATION AND MODERATE T-WAVE ABNOR MALITY, CONSIDER LATERAL ISCHEMIA ABNORMAL ECG PREVIOUS TRACING : 04/28/2017 09.31 DOCTOR: Zahra Cooper Interpretating Date/Time 04/29/2017 20:44:10
--- NOTE | 2017-04-29 20:58 | EKG ---
Date Performed: 04/28/2017 Time Performed: 09:31:20 PTAGE: 76 years EKG: Sinus rhythm VOLTAGE CRITERIA FOR LVH ST DEVIATION AND MODERATE T-WAVE ABNORMALITY, CONSIDER LATERAL ISCHEMIA ABN ORMAL ECG PREVIOUS TRACING : 04/05/2009 13.01 DOCTOR: Zahra Cooper Interpretating Date/Time 04/29/2017 20:51:20
[2017-04-29] MEDS: SODIUM CHLORIDE 0.9% FLUSH 10 ML FLUSH IV FLUSH PRN (21:06)
[2017-04-29 23:37] LABS: BACTERIA, URINE RARE /hpf; BLOOD, URINE NEG (NEG); COMMENT (UR) CULT NOT INDICATED; CULTURE IF INDICATED CULT NOT INDICATED; GLUCOSE,URINE NEG (NEG); HYALINE CAST, URINE 1 /lpf (RARE); KETONE, URINE NEG (NEG); MUCUS URINE FEW /lpf (OCC); NITRITE,URINE NEG (NEG); SQUAMOUS EPITHELIAL CELL URINE 2 /hpf (0-5); URINE COLOR YELLOW (YELLW/STRAW)
[2017-04-30] VITALS (19 sets, daily range): BP systolic 117–142; BP diastolic 46–90; PULSE 63–132; RESP 18–20; TEMP 97.4–98.5; O2SAT 93–100
[2017-04-30] MEDS: RESP: ALBUTEROL 2.5 MG/IPRATROPIUM 0.5 MG NEB (SCH) NEB ×3 (07:55→19:37)
[2017-04-30] MEDS: ASPIRIN EC 81 MG TABEC PO SCH (08:40)
[2017-04-30] MEDS: DOCUSATE SODIUM 50 MG/SENNA 8.6 MG TAB PO SCH ×2 (08:40→21:47)
[2017-04-30] MEDS: METOPROLOL TARTRATE 25 MG TAB PO SCH (08:40)
[2017-04-30] MEDS: FUROSEMIDE 20 MG TAB PO SCH ×2 (08:40→18:11)
[2017-04-30] MEDS: SODIUM CHLORIDE 0.9% FLUSH 10 ML FLUSH IV FLUSH SCH ×2 (08:41→21:50)
[2017-04-30] MEDS ORDERED: PILL SPLITTER OTHER PRN (08:45)
[2017-04-30] MEDS ORDERED: LISINOPRIL 5 MG TAB PO SCH (09:00)
[2017-04-30] MEDS ORDERED: REGADENOSON INJ 0.4 MG/5 ML SYR ONE (09:53)
--- NOTE | 2017-04-30 11:20 | RADRPT ---
EXAM DATE/TIME: 04/30/2017 09:15 [facility] COMPARISON: No previous studies available for comparison. INDICATIONS : Chest pain for 1 day. Angina. DOSE: 25.8 mCi Tc99m Myoview at stress. 8.6 mCi Tc99m Myoview at rest. 0.4 mg Lexiscan STRESS SYMPTOMS: Short of breath. EJECTION FRACTION: 22% MEDICAL HISTORY : Carcinoma, prostate. Cardiomegaly. SURGICAL HISTORY : None. ENCOUNTER: Initial ACUITY: 1 day PAIN SCALE: 4/10 LOCATION: Midsternal chest TECHNIQUE: The patient underwent pharmacologic stress with infusion of prescribed dose. Continuous ECG tracing was monitored during stress. Gated SPECT imaging was performed after stress and conventional SPECT i maging was performed at rest. The examination was performed on a SPECT/CT scanner, both attenuation and non-corrected datasets were reviewed. FINDINGS: DISTRIBUTION: The maximum perfused segment at stress is in the lateral wall. PERFUSION STUDY: There is a severe fixed defect involving the apex of with a large size moderate severity next defect involving the septal wall. This is in the distribution of the right coronary artery. No reversible is chemic segments are identified GATED STUDY: There is severe global hypokinesis with ejection fraction of 22% CONCLUSION: 1. Severe global hypokinesis percent ejection fraction 2. 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 as above RISK CATEGORY: High (>3% Annual Mortality Rate) Ronald Mcelroy MD on April 30, 2017 at 11:15 Board Certified Radiologist. This report was verified electronically.
[2017-04-30 11:34] LABS: AUTOMATED NEUTROPHIL # 4.5 TH/MM3 (1.8-7.7); BASOPHIL # 0.1 TH/MM3 (0-0.2); BASOPHIL % 0.8 % (0.0-2.0); EOSINOPHIL % 0.6 % (0.0-4.0); HEMATOCRIT 33.5 % (39.0-51.0); LYMPH % 18.5 % (9.0-44.0); LYMPHOCYTE # 1.2 TH/MM3 (1.0-4.8); MEAN CELL VOLUME 91.3 FL (80.0-100.0); MEAN CORPUSCULAR HEMOGLOBIN 29.3 PG (27.0-34.0); MEAN CORPUSCULAR HGB CONC 32.1 % (32.0-36.0); MONO % 10.6 % (0.0-8.0); NEUT % 69.5 % (16.0-70.0); PLATELET COUNT 138 TH/MM3 (150-450); RED BLOOD COUNT 3.67 MIL/MM3 (4.50-5.90); RED CELL DISTRIBUTION WIDTH 19.3 % (11.6-17.2); WHITE BLOOD COUNT 6.5 TH/MM3 (4.0-11.0)
[2017-04-30 11:35] LABS: HEMO FLAGS AUTO DIFF
[2017-04-30 12:36] LABS: BANDS 2 % (0-6); CORRECTED NUCLEATED RBC 5 /100 WBC (0-0); EOSINOPHILS 3 % (0-4); NEUTROPHIL # MANUAL DIFF 4.9 TH/MM3 (1.8-7.7); PLATELET ESTIMATE SMEAR LOW (NORMAL); PLATELET MORPHOLOGY NORMAL (NORMAL); POLYS (SEG NEUTROPHILS) 73 % (16-70); SCAN/DIFF FINAL DIFF MANUAL; WBC DIFF SAMPLE 100
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
--- NOTE | 2017-04-30 13:38 | PD.CONS ---
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 the care of Mr. Green. Attestation To help prompt me to consider important information that might be impacting today's encounter and assessment, information from prior notes written by myself or my colleagues may have been "brought forward" into today's note. My signature on this note, however, is an attestation that I personally performed the exam, history, and/or decision-making noted today, and, unless otherwise indicated, the interactions with patient, family, and staff as well as the review of records all occurred today. I also attest that the listed assessment and stated plan reflect my best clinical judgment today based on the combination of historical information, prior notes, and today's exam/ interactions. When time spent is documented, it refers only to time spent today by the signer, or if indicated, combined time spent today by collaborating physician/nurse practitioner. Radha Macario Apr 30, 2017 13:37
[2017-04-30 14:16] LABS: ALKALINE PHOSPHATASE 744 U/L (45-117); ALT (GPT) 282 U/L (12-78); ANION GAP 9 MEQ/L (5-15); AST (GOT) 202 U/L (15-37); BICARBONATE 25.1 MEQ/L (21.0-32.0); CHLORIDE 108 MEQ/L (98-107); GLOMERULAR FILTRATION RATE 84 ML/MIN (>89); POTASSIUM 3.6 MEQ/L (3.5-5.1); SODIUM (NA) 142 MEQ/L (136-145); TOTAL BILIRUBIN ADULT 0.8 MG/DL (0.2-1.0)
[2017-04-30 14:17] LABS: BLOOD UREA NITROGEN 20 MG/DL (7-18)
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
[2017-04-30] MEDS ORDERED: METOPROLOL TARTRATE 25 MG TAB PO SCH (21:00)
--- NOTE | 2017-04-30 21:01 | HHI.PR ---
Subjective Remarks 76 YOWM with metastatic Prostate ca, Pl eff, Nicotine use had Left TC, 750 cc fluid removed Feels breathing better Pl fluid cytology Negative Objective Vital Signs Vital Signs Date Time Temp Pulse Resp B/P (MAP) Pulse Ox O2 Delivery O2 Flow Rate FiO2 04/30/17 18:00 76 04/30/17 17:00 78 04/30/17 16:00 97.9 85 19 117/75 (89) 99 04/30/17 16:00 71 04/30/17 15:00 99 04/30/17 14:06 76 04/30/17 13:00 69 04/30/17 12:00 78 04/30/17 12:00 97.4 63 19 123/46 (71) 98 04/30/17 11:00 65 04/30/17 08:00 97.7 94 19 142/85 (104) 100 04/30/17 07:57 93 04/30/17 07:00 94 Room Air 04/30/17 07:00 96 04/30/17 04:45 132 04/30/17 04:04 97.7 66 20 128/90 (103) 100 04/30/17 04:02 81 04/30/17 00:00 79 04/29/17 23:41 97.5 110 20 129/88 (102) 97 04/29/17 23:22 125 I/O 04/29/17 04/29/17 04/29/17 04/30/17 04/30/17 04/30/17 07:00 15:00 23:00 07:00 15:00 23:00 Intake Total 480 ml 120 ml 360 ml Output Total 480 ml 250 ml 200 ml Balance 480 ml -480 ml -130 ml -200 ml 360 ml Intake Oral 480 ml 120 ml 360 ml Output Urine Total 480 ml 250 ml 200 ml # Voids 3 1 # Bowel Movements 0 Result Diagram: 04/30/17 1113 04/30/17 1315 Objective Remarks GENERAL: MBMN WM, NAD SKIN: Warm and dry. HEAD: Normocephalic. EYES: No scleral icterus. No injection or drainage. NECK: Supple, trachea midline. No JVD or lymphadenopathy. CARDIOVASCULAR: Regular rate and rhythm without murmurs, gallops, or rubs. RESPIRATORY: Breath sounds equal bilaterally. No accessory muscle use. GASTROINTESTINAL: Abdomen soft, non-tender, nondistended. MUSCULOSKELETAL: No cyanosis, or edema. BACK: Nontender without obvious deformity. No CVA tenderness. A/P Assessment and Plan Left Pl effusion, s/p TC COPD Metastatic Prostate ca PLAN Cardiac [place] underway Stable on RA Brian Adams MD Apr 30, 2017 21:01
[2017-04-30] MEDS: SODIUM CHLORIDE 0.9% FLUSH 10 ML FLUSH IV FLUSH PRN (21:50)
[2017-05-01] VITALS (16 sets, daily range): BP systolic 113–138; BP diastolic 62–79; PULSE 70–126; RESP 16–20; TEMP 97.4–98.3; O2SAT 97–100
[2017-05-01] MEDS ORDERED: METOPROLOL TARTRATE 25 MG TAB PO ONE (00:45)
[2017-05-01 06:56] LABS: AUTOMATED NEUTROPHIL # 4.8 TH/MM3 (1.8-7.7); BASOPHIL % 0.4 % (0.0-2.0); EOSINOPHIL % 0.5 % (0.0-4.0); HEMATOCRIT 31.9 % (39.0-51.0); LYMPH % 17.3 % (9.0-44.0); LYMPHOCYTE # 1.2 TH/MM3 (1.0-4.8); MEAN CELL VOLUME 89.8 FL (80.0-100.0); MEAN CORPUSCULAR HEMOGLOBIN 29.1 PG (27.0-34.0); MEAN CORPUSCULAR HGB CONC 32.4 % (32.0-36.0); MONO % 9.6 % (0.0-8.0); NEUT % 72.2 % (16.0-70.0); PLATELET COUNT 121 TH/MM3 (150-450); RED BLOOD COUNT 3.55 MIL/MM3 (4.50-5.90); RED CELL DISTRIBUTION WIDTH 19.1 % (11.6-17.2); WHITE BLOOD COUNT 6.7 TH/MM3 (4.0-11.0)
[2017-05-01 07:07] LABS: HEMO FLAGS AUTO DIFF
[2017-05-01 07:16] LABS: APTT (PATIENT) 29.6 SEC (24.3-30.1); INTERNATIONAL NORMALIZED RATIO 1.3 RATIO; PROTHROMBIN TIME - PATIENT 14.7 SEC (9.8-11.6)
[2017-05-01] MEDS ORDERED: VENTAER INH (07:26)
[2017-05-01 07:27] LABS: BICARBONATE 23.7 MEQ/L (21.0-32.0); MAGNESIUM 2.4 MG/DL (1.5-2.5)
[2017-05-01] MEDS ORDERED: LISI10TA3 PO (07:29)
[2017-05-01] MEDS ORDERED: SPIR25 PO (07:29)
[2017-05-01] MEDS ORDERED: METO25TA3 PO (07:29)
[2017-05-01] MEDS ORDERED: FURO40TA PO (07:29)
[2017-05-01] MEDS ORDERED: ASPI-99 PO (07:29)
--- NOTE | 2017-05-01 07:29 | HHI.DCPOC ---
Discharge Care Plan Diagnosis: (1) CHF (congestive heart failure) Your Health Problems Are: Difficulty with ADL Exercise Tolerance Goals to Promote Your Health * To prevent worsening of your condition and complications * To maintain your health at the optimal level Directions to Meet Your Goals Take your medications as prescribed Follow your dietary instruction Follow activity as directed Keep your appointments as scheduled Take your immunizations and boosters as scheduled If your symptoms worsen call your PCP, if no PCP go to Urgent Care Center or Emergency Room Smoking is Dangerous to Your Health. Avoid second hand smoke Call the 24-hour hour crisis hotline for domestic abuse at Ralph Aviles MD May 01, 2017 07:29
[2017-05-01] MEDS: RESP: ALBUTEROL 2.5 MG/IPRATROPIUM 0.5 MG NEB (SCH) NEB ×3 (07:34→19:16)
[2017-05-01 07:38] LABS: INDIRECT BILIRUBIN 0.4 MG/DL (0.0-0.8); TOTAL BILIRUBIN ADULT 0.8 MG/DL (0.2-1.0)
[2017-05-01] MEDS: DOCUSATE SODIUM 50 MG/SENNA 8.6 MG TAB PO SCH ×2 (08:34→21:00)
[2017-05-01] MEDS: ASPIRIN EC 81 MG TABEC PO SCH (08:34)
[2017-05-01] MEDS: SPIRONOLACTONE 25 MG TAB PO SCH (08:34)
[2017-05-01] MEDS: FUROSEMIDE 40 MG TAB PO SCH (08:34)
[2017-05-01] MEDS: LISINOPRIL 10 MG TAB PO SCH (08:34)
[2017-05-01] MEDS: SODIUM CHLORIDE 0.9% FLUSH 10 ML FLUSH IV FLUSH SCH ×2 (08:35→21:00)
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
[2017-05-01 09:54] LABS: BANDS 6 % (0-6); CORRECTED NUCLEATED RBC 7 /100 WBC (0-0); NEUTROPHIL # MANUAL DIFF 5.4 TH/MM3 (1.8-7.7); POLYS (SEG NEUTROPHILS) 75 % (16-70); WBC DIFF SAMPLE 100
[2017-05-01 09:55] LABS: PLATELET ESTIMATE SMEAR LOW (NORMAL); PLATELET MORPHOLOGY NORMAL (NORMAL)
[2017-05-01 09:56] LABS: OVALOCYTES 1+ (NORMAL); SCAN/DIFF FINAL DIFF MANUAL
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
[2017-05-01] MEDS ORDERED: PIPERACIL-TAZO 3.375 GM PREMIX 50 ML IV SCH (11:00)
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
[2017-05-01] MEDS: BICALUTAMIDE 50 MG TAB PO SCH (13:59)
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
--- NOTE | 2017-05-01 15:03 | HHI.HCPN ---
Reason for visit a. To assist with evaluation and management of symptoms including: Shortness of breath and debility. b. To assist medical decision maker(s) with: better understanding of current medical conditions; weighing benefits/burdens of medical treatment options; making medical treatment decisions. . Subjective/Interval History Mr. Green is a 76-year-old male with a medical history significant for prostate cancer status post prostatectomy in 2008. Patient presented to the emergency room on 04/28/17 endorsing shortness of breath for the previous 2-3 weeks. In addition, patient reporting weight loss of approximately 25 pounds in the previous 3 months and persistent cough. Clinical presentation consistent with metastatic prostate cancer. Palliative care consulted for clarifications of goals of care. Patient seen in his room, resting in bed in no acute distress. Alert x oriented x self, place and situation. Endorsing feeling overall tired but denies any pain, nausea/vomiting, shortness of breath or abdominal discomfort. Stress test yesterday revealing nonischemic cardiomyopathy. Cardiology following. Oncology following, patient was started on Casodex. Pending bone scan scheduled for tomorrow 05/02/17, likely discharge home after scan. Patient remains afebrile, stable hemodynamically. Tolerating room air, oxygen saturation in the high 90s. Laboratory workup today revealing stable Hgb 10.3, platelet count 121. Liver enzymes remain elevated, GI following, likely passive hepatic congestion. Telephone conversation with patient's significant other Enedelia, medical update provided. Goals of care remain unchanged, patient electing to continue aggressive management. Questions were answered in great detail. . Family/friend interactions See interval note. . Advance Directives Living Will: Never completed Health Care Surrogate: Copy in medical record Durable Power of College Specialist: Never completed Advance Directive Specifics Date completed: 04/30/17. . Health Care Surrogate(s): Patient elected his significant other Enedelia Martinez as healthcare surrogate decision maker. No alternate designation. . Significant change in goals: Goals of therapy remain unchanged. . Objective Vital Signs Date Time Temp Pulse Resp B/P (MAP) Pulse Ox O2 Delivery O2 Flow Rate FiO2 05/01/17 11:54 97.8 76 16 123/71 (88) 100 05/01/17 08:28 Room Air 05/01/17 08:28 98.3 117 16 113/75 (88) 98 05/01/17 07:36 99 21 05/01/17 06:09 74 05/01/17 05:07 76 05/01/17 04:04 70 05/01/17 04:00 97.4 75 16 113/62 (79) 99 05/01/17 03:07 72 05/01/17 02:22 77 05/01/17 01:30 126 18 138/79 (98) 97 05/01/17 01:07 83 05/01/17 00:18 98.0 85 18 124/75 (91) 97 05/01/17 00:16 84 04/30/17 23:38 125 04/30/17 21:40 Room Air 04/30/17 21:40 98.5 105 18 126/84 (98) 94 04/30/17 20:08 80 04/30/17 19:36 98 21 04/30/17 18:00 76 04/30/17 17:00 78 04/30/17 16:00 97.9 85 19 117/75 (89) 99 04/30/17 16:00 71 04/30/17 15:00 99 Intake & Output 05/01/17 05/01/17 07:00 19:00 Intake Total 280 ml Output Total 250 ml 200 ml Balance 30 ml -200 ml Intake Oral 280 ml Output Urine Total 250 ml 200 ml Physical Exam CONSTITUTIONAL/GENERAL: This is a cachectic, elderly male resting in bed in no acute distress. TUBES/LINES/DRAINS: PIV. SKIN: No jaundice, rashes, or lesions. No wounds seen anteriorly. Skin temperature appropriate. Not diaphoretic. HEAD: Atraumatic. Normocephalic. Temporal wasting bilaterally. EYES: Pupils equal and round and reactive. Extraocular motions intact. No scleral icterus. No injection or drainage. Fundi not examined. ENT: Hearing grossly normal. Nose without bleeding or purulent drainage. Moist oral mucosa. NECK: Trachea midline. Supple, nontender. CARDIOVASCULAR: Regular rate and rhythm without murmurs, gallops, or rubs. Peripheral pulses symmetric. RESPIRATORY/CHEST: Symmetric, unlabored respirations. Clear to auscultation. Breath sounds equal bilaterally. GASTROINTESTINAL: Abdomen soft, non-tender, nondistended. No guarding. Bowel sounds present. GENITOURINARY: Without palpable bladder distension. MUSCULOSKELETAL: Extremities without clubbing, cyanosis, or edema. No mottling or clubbing. Muscle wasting to all 4 extremities. NEUROLOGICAL: Awake and alert. Motor and sensory grossly within normal limits. Follows commands. Cognitively sharp. Moves all extremities. PSYCHIATRIC: No obvious anxiety/depression. no apparent hallucinations or other psychotic thought process. Pleasant and cooperative. . Diagnostic Tests Laboratory Laboratory Tests Test 04/28/17 20:50 04/29/17 07:00 04/29/17 08:00 04/29/17 15:43 Reticulocyte Count 2.2 % (0.4-3.0) Absolute Reticulocyte Count 79.2 MIL/L (20.0-150.0) Iron Level 171 MCG/DL (65-175) Total Iron Binding Capacity 192 MCG/DL (250-450) Percent Iron Saturation 89.2 % (20-50) Ferritin 1805 NG/ML (26-388) Lactate Dehydrogenase 1113 U/L (87-241) 151 U/L (87-241) Total Creatine Kinase 165 U/L (39-308) Troponin I 0.62 NG/ML (0.02-0.05) Albumin 2.6 GM/DL (3.4-5.0) 2.5 GM/DL (3.4-5.0) Tumor Marker Alpha Fetoprotein 1.9 NG/ML (0.5-8.0) Carcinoembryonic Antigen 3.1 NG/ML (0.2-5.0) CA 19-9 Antigen 4.1 U/ML (0.0-35.0) Prostate Specific Antigen 99.69 NG/ML (0.00-4.00) Vitamin B12 Level 1445 PG/ML (193-986) Folate 15.0 NG/ML (3.1-17.5) Hepatitis A IgM Antibody NEGATIVE (NEGATIVE) Hepatitis B Surface Antigen NEGATIVE (NEGATIVE) Hepatitis B Core IgM Antibody NEGATIVE (NEGATIVE) Hepatitis C Antibody NEGATIVE (NEGATIVE) White Blood Count 6.1 TH/MM3 (4.0-11.0) Red Blood Count 3.57 MIL/MM3 (4.50-5.90) Hemoglobin 10.2 GM/DL (13.0-17.0) Hematocrit 32.3 % (39.0-51.0) Mean Corpuscular Volume 90.6 FL (80.0-100.0) Mean Corpuscular Hemoglobin 28.6 PG (27.0-34.0) Mean Corpuscular Hemoglobin Concent 31.5 % (32.0-36.0) Red Cell Distribution Width 19.6 % (11.6-17.2) Platelet Count 148 TH/MM3 (150-450) Mean Platelet Volume 8.4 FL (7.0-11.0) Neutrophils (%) (Auto) 70.6 % (16.0-70.0) Lymphocytes (%) (Auto) 17.2 % (9.0-44.0) Monocytes (%) (Auto) 10.8 % (0.0-8.0) Eosinophils (%) (Auto) 0.9 % (0.0-4.0) Basophils (%) (Auto) 0.5 % (0.0-2.0) Neutrophils # (Auto) 4.3 TH/MM3 (1.8-7.7) Lymphocytes # (Auto) 1.1 TH/MM3 (1.0-4.8) Monocytes # (Auto) 0.7 TH/MM3 (0-0.9) Eosinophils # (Auto) 0.1 TH/MM3 (0-0.4) Basophils # (Auto) 0.0 TH/MM3 (0-0.2) CBC Comment AUTO DIFF Differential Comment AUTO DIFF CONFIRMED Prothrombin Time 16.5 SEC (9.8-11.6) Prothromb Time International Ratio 1.5 RATIO Blood Urea Nitrogen 22 MG/DL (7-18) Creatinine 0.95 MG/DL (0.60-1.30) Random Glucose 106 MG/DL (74-106) Total Protein 5.8 GM/DL (6.4-8.2) 1.0 GM/DL (6.4-8.2) Calcium Level 8.6 MG/DL (8.5-10.1) Alkaline Phosphatase 745 U/L (45-117) Aspartate Amino Transf (AST/SGOT) 356 U/L (15-37) Alanine Aminotransferase (ALT/SGPT) 359 U/L (12-78) Total Bilirubin 0.9 MG/DL (0.2-1.0) Sodium Level 141 MEQ/L (136-145) Potassium Level 3.5 MEQ/L (3.5-5.1) Chloride Level 107 MEQ/L (98-107) Carbon Dioxide Level 23.8 MEQ/L (21.0-32.0) Anion Gap 10 MEQ/L (5-15) Estimat Glomerular Filtration Rate 77 ML/MIN (>89) Pleural Fluid pH 8.5 Pleural Fluid WBC 188 /MM3 (0-10) Pleural Fluid RBC 514 /MM3 (0-0) Pleural Fluid Neutrophils 56 % Pleural Fluid Lymphocytes 19 % Pleural Fluid Monocytes 6 % Pleural Fluid Histiocytes 1 % Pleural Fluid Mesothelial Cells 18 % Pleural Fluid Comment Pleural Fluid Total Protein 1.1 GM/DL Pleural Fluid LDH 154 U/L Pleural Fluid Glucose 150 MG/DL Test 04/29/17 22:50 04/30/17 11:13 04/30/17 13:15 05/01/17 05:29 Urine Color YELLOW (YELLW/STRAW) Urine Turbidity HAZY (CLEAR) Urine pH 5.0 (5.0-8.5) Urine Specific [place] 1.036 (1.002-1.035) Urine Protein 30 mg/dL (NEG-TRACE) Urine Glucose (UA) NEG mg/dL (NEG) Urine Ketones NEG mg/dL (NEG) Urine Occult Blood NEG (NEG) Urine Nitrite NEG (NEG) Urine Bilirubin NEG (NEG) Urine Urobilinogen 2.0 MG/DL (LESS THAN Urine Leukocyte Esterase NEG (NEG) Urine RBC 1 /hpf (0-3) Urine WBC 1 /hpf (0-5) Urine Squamous Epithelial Cells 2 /hpf (0-5) Urine Bacteria RARE /hpf (NONE) Urine Hyaline Casts 1 /lpf (RARE) Urine Mucus FEW /lpf (OCC) Microscopic Urinalysis Comment CULT NOT INDICATED White Blood Count 6.5 TH/MM3 (4.0-11.0) 6.7 TH/MM3 (4.0-11.0) Red Blood Count 3.67 MIL/MM3 (4.50-5.90) 3.55 MIL/MM3 (4.50-5.90) Hemoglobin 10.8 GM/DL (13.0-17.0) 10.3 GM/DL (13.0-17.0) Hematocrit 33.5 % (39.0-51.0) 31.9 % (39.0-51.0) Mean Corpuscular Volume 91.3 FL (80.0-100.0) 89.8 FL (80.0-100.0) Mean Corpuscular Hemoglobin 29.3 PG (27.0-34.0) 29.1 PG (27.0-34.0) Mean Corpuscular Hemoglobin Concent 32.1 % (32.0-36.0) 32.4 % (32.0-36.0) Red Cell Distribution Width 19.3 % (11.6-17.2) 19.1 % (11.6-17.2) Platelet Count 138 TH/MM3 (150-450) 121 TH/MM3 (150-450) Mean Platelet Volume 8.8 FL (7.0-11.0) 8.9 FL (7.0-11.0) Neutrophils (%) (Auto) 69.5 % (16.0-70.0) 72.2 % (16.0-70.0) Lymphocytes (%) (Auto) 18.5 % (9.0-44.0) 17.3 % (9.0-44.0) Monocytes (%) (Auto) 10.6 % (0.0-8.0) 9.6 % (0.0-8.0) Eosinophils (%) (Auto) 0.6 % (0.0-4.0) 0.5 % (0.0-4.0) Basophils (%) (Auto) 0.8 % (0.0-2.0) 0.4 % (0.0-2.0) Neutrophils # (Auto) 4.5 TH/MM3 (1.8-7.7) 4.8 TH/MM3 (1.8-7.7) Lymphocytes # (Auto) 1.2 TH/MM3 (1.0-4.8) 1.2 TH/MM3 (1.0-4.8) Monocytes # (Auto) 0.7 TH/MM3 (0-0.9) 0.6 TH/MM3 (0-0.9) Eosinophils # (Auto) 0.0 TH/MM3 (0-0.4) 0.0 TH/MM3 (0-0.4) Basophils # (Auto) 0.1 TH/MM3 (0-0.2) 0.0 TH/MM3 (0-0.2) CBC Comment AUTO DIFF AUTO DIFF Differential Total Cells Counted 100 100 Neutrophils % (Manual) 73 % (16-70) 75 % (16-70) Band Neutrophils % 2 % (0-6) 6 % (0-6) Lymphocytes % 18 % (9-44) 12 % (9-44) Monocytes % 4 % (0-8) 7 % (0-8) Eosinophils % 3 % (0-4) Neutrophils # (Manual) 4.9 TH/MM3 (1.8-7.7) 5.4 TH/MM3 (1.8-7.7) Nucleated Red Blood Cells 5 /100 WBC (0-0) 7 /100 WBC (0-0) Differential Comment FINAL DIFF MANUAL FINAL DIFF MANUAL Platelet Estimate LOW (NORMAL) LOW (NORMAL) Platelet Morphology Comment NORMAL (NORMAL) NORMAL (NORMAL) Hematology Comments Blood Urea Nitrogen 20 MG/DL (7-18) 21 MG/DL (7-18) Creatinine 0.88 MG/DL (0.60-1.30) 0.93 MG/DL (0.60-1.30) Random Glucose 104 MG/DL (74-106) 102 MG/DL (74-106) Total Protein 5.8 GM/DL (6.4-8.2) 5.9 GM/DL (6.4-8.2) Albumin 2.4 GM/DL (3.4-5.0) 2.7 GM/DL (3.4-5.0) Calcium Level 8.1 MG/DL (8.5-10.1) 8.2 MG/DL (8.5-10.1) Alkaline Phosphatase 744 U/L (45-117) 707 U/L (45-117) Aspartate Amino Transf (AST/SGOT) 202 U/L (15-37) 142 U/L (15-37) Alanine Aminotransferase (ALT/SGPT) 282 U/L (12-78) 245 U/L (12-78) Total Bilirubin 0.8 MG/DL (0.2-1.0) 0.8 MG/DL (0.2-1.0) Sodium Level 142 MEQ/L (136-145) 139 MEQ/L (136-145) Potassium Level 3.6 MEQ/L (3.5-5.1) 4.0 MEQ/L (3.5-5.1) Chloride Level 108 MEQ/L (98-107) 106 MEQ/L (98-107) Carbon Dioxide Level 25.1 MEQ/L (21.0-32.0) 23.7 MEQ/L (21.0-32.0) Anion Gap 9 MEQ/L (5-15) 9 MEQ/L (5-15) Estimat Glomerular Filtration Rate 84 ML/MIN (>89) 79 ML/MIN (>89) Polychromasia 2.0 % (0.0-1.9) Ovalocytes 1+ (NORMAL) Prothrombin Time 14.7 SEC (9.8-11.6) Prothromb Time International Ratio 1.3 RATIO Activated Partial Thromboplast Time 29.6 SEC (24.3-30.1) Fibrinogen 297 mg/dL (227-377) Magnesium Level 2.4 MG/DL (1.5-2.5) Direct Bilirubin 0.4 MG/DL (0.0-0.2) Indirect Bilirubin 0.4 MG/DL (0.0-0.8) Result Diagram: 05/01/1752805/01/17 05 Microbiology Microbiology Date/Time Source Procedure Growth Status 04/29/17 15:43 Fluid Pleural Fluid Fungal Smear - Final NO FUNGAL ELEMENTS SEEN. Resulted 04/29/17 15:43 Fluid Pleural Fluid Fungal Culture Pending Resulted 04/29/17 15:43 Fluid Pleural Fluid Acid Fast Stain - Final NO ACID FAST BACILLI SEEN Resulted 04/29/17 15:43 Fluid Pleural Fluid Mycobacterial Culture Pending Resulted 04/29/17 15:43 Fluid Pleural Fluid Gram Stain - Final Resulted 04/29/17 15:43 Body Fluid Culture - Preliminary Gram Positive Rods Resulted Procedures * 04/29/17 -left-sided thoracentesis . Assessment and Plan Disease Oriented Problem List: (1) Metastatic disease (2) COPD (chronic obstructive pulmonary disease) (3) Bilateral pleural effusion (4) Pleural effusion (5) CHF (congestive heart failure) (6) Cachexia Symptom Scale: (1) Dyspnea 0-10 Scale: 0 Comment: Dyspnea on minimal exertion (2) Debility 0-10 Scale: Unable to quantify Comment: Progressive. Pertinent Non-Medical Issues Psychosocial: Patient is a [place]. He has been twice, first of natural causes, second . Patient has 5 children ; Yoselin who lives in [place], Leo who lives in [place], Dustin lives in [place], Scott lives in [place], and Pranav who lives in [place]. Patient is a part-time worker at [employer]. No service. Patient has 3 brothers and 2 sisters. Spiritual: No rastafari affiliations. Legal: Designation of healthcare surrogate completed. Ethical issues impacting care: No ethical issues identified. . Important Contacts Significant other/healthcare surrogate: Enedelia freemanMiriam & x [phone] Patient's mother Alicia Green . Prognosis Mr. Green is a 76-year-old male with a medical history significant for prostate cancer status post prostatectomy in 2008. Patient presented to the emergency room on 04/28/17 endorsing shortness of breath for the previous 2-3 weeks. In addition, patient reporting weight loss of approximately 25 pounds in the previous 3 months and persistent cough. Patient diagnosed with likely metastatic prostate cancer, COPD, CHF, transaminitis, anemia chronic disease. Patient reporting progressive decline, decreased activity tolerance. He is cachectic, BMI 15.3. Patient is at high risk for further complications, continue decline and . Additional studies pending for prognostication. . Code Status: Full Code Plan * CODE STATUS: FULL code. * HEALTHCARE DECISION-MAKING: Patient participating in medical decision-making. He appears to have a good understanding of his clinical conditions and retains the ability to weight benefits vs burdens of treatment options. Patient has designated his significant other Enedelia Martinez as healthcare surrogate decision maker. No alternate decision-maker elected. * GOALS OF CARE: Patient electing to pursue aggressive attempt at disease specific therapy, he was started on Casodex today. Gently reviewed that his disease is metastatic and not curable, goal of therapy is for prolongation of survival and palliation of symptoms. Patient likely to discharge home after bone scan is completed. * SYMPTOMS: = Shortness of breath, newly diagnosed COPD, CHF, pleural effusions. Worsening by physical deconditioning/debility. Patient status post left thoracentesis. Currently tolerating room air, pulmonology following. =Debility: Progressive secondary to metastatic disease and acute illness. = Cachexia/malnutrition. Patient with a reported 25 pound weight loss in the past 3 months. BMI 15.3. Albumin 2.5. [employer] Specialist is following. * Palliative care contact information has been provided to patient. * Palliative care will continue to follow-up as needed for further clarifications of goals of care as pt's clinical course continues to evolve. . Time Spent Total Floor Time (mins): 28 (Total time to include review medical records, physical exam, goals of care conversation with patient, telephone conversation with healthcare surrogate Enedelia.) >50% Counseling/Coord of Care: Yes Attestation To help prompt me to consider important information that might be impacting today's encounter and assessment, information from prior notes written by myself or my colleagues may have been "brought forward" into today's note. My signature on this note, however, is an attestation that I personally performed the exam, history, and/or decision-making noted today, and, unless otherwise indicated, the interactions with patient, family, and staff as well as the review of records all occurred today. I also attest that the listed assessment and stated plan reflect my best clinical judgment today based on the combination of historical information, prior notes, and today's exam/ interactions. When time spent is documented, it refers only to time spent today by the signer, or if indicated, combined time spent today by collaborating physician/nurse practitioner. Radha Macario May 01, 2017 15:03
--- NOTE | 2017-05-01 19:38 | HHI.PR ---
Subjective Remarks 76 YOWM with metastatic Prostate ca, Pl eff, Nicotine use had Left TC, 750 cc fluid removed Feels breathing better Pl fluid cytology Negative Feels weak Objective Vital Signs Vital Signs Date Time Temp Pulse Resp B/P (MAP) Pulse Ox O2 Delivery O2 Flow Rate FiO2 05/01/17 19:16 98 21 05/01/17 15:35 97.8 81 20 128/79 (95) 05/01/17 11:54 97.8 76 16 123/71 (88) 100 05/01/17 08:28 Room Air 05/01/17 08:28 98.3 117 16 113/75 (88) 98 05/01/17 07:36 99 21 05/01/17 06:09 74 05/01/17 05:07 76 05/01/17 04:04 70 05/01/17 04:00 97.4 75 16 113/62 (79) 99 05/01/17 03:07 72 05/01/17 02:22 77 05/01/17 01:30 126 18 138/79 (98) 97 05/01/17 01:07 83 05/01/17 00:18 98.0 85 18 124/75 (91) 97 05/01/17 00:16 84 04/30/17 23:38 125 04/30/17 21:40 Room Air 04/30/17 21:40 98.5 105 18 126/84 (98) 94 04/30/17 20:08 80 I/O 04/30/17 04/30/17 04/30/17 05/01/17 05/01/17 05/01/17 07:00 15:00 23:00 07:00 15:00 23:00 Intake Total 640 ml 1440 ml Output Total 200 ml 250 ml 200 ml Balance -200 ml 390 ml -200 ml 1440 ml Intake Oral 640 ml 1440 ml Output Urine Total 200 ml 250 ml 200 ml # Voids 1 4 Result Diagram: 05/01/1752805/01/17528 Objective Remarks GENERAL: MBMN WM, NAD SKIN: Warm and dry. HEAD: Normocephalic. EYES: No scleral icterus. No injection or drainage. NECK: Supple, trachea midline. No JVD or lymphadenopathy. CARDIOVASCULAR: Regular rate and rhythm without murmurs, gallops, or rubs. RESPIRATORY: Breath sounds equal bilaterally. No accessory muscle use. GASTROINTESTINAL: Abdomen soft, non-tender, nondistended. MUSCULOSKELETAL: No cyanosis, or edema. BACK: Nontender without obvious deformity. No CVA tenderness. A/P Assessment and Plan Left Pl effusion, s/p TC COPD Metastatic Prostate ca PLAN Cardiac [place] underway Stable on RA Encourage PO intake Brian Adams MD May 01, 2017 19:38
[2017-05-02] VITALS (14 sets, daily range): BP systolic 112–136; BP diastolic 65–85; PULSE 72–90; RESP 16–22; TEMP 97.6–98.3; O2SAT 96–100
[2017-05-02] MEDS: PIPERACIL-TAZO 3.375 GM PREMIX 50 ML IV SCH ×3 (00:16→09:43)
[2017-05-02 06:30] LABS: AUTOMATED NEUTROPHIL # 4.6 TH/MM3 (1.8-7.7); BASOPHIL % 0.3 % (0.0-2.0); EOSINOPHIL # 0.1 TH/MM3 (0-0.4); EOSINOPHIL % 0.8 % (0.0-4.0); HEMATOCRIT 30.6 % (39.0-51.0); LYMPH % 17.9 % (9.0-44.0); LYMPHOCYTE # 1.2 TH/MM3 (1.0-4.8); MEAN CORPUSCULAR HEMOGLOBIN 28.7 PG (27.0-34.0); MEAN CORPUSCULAR HGB CONC 31.9 % (32.0-36.0); MONO % 10.1 % (0.0-8.0); NEUT % 70.9 % (16.0-70.0); PLATELET COUNT 110 TH/MM3 (150-450); WHITE BLOOD COUNT 6.5 TH/MM3 (4.0-11.0)
[2017-05-02 06:41] LABS: INTERNATIONAL NORMALIZED RATIO 1.3 RATIO; PROTHROMBIN TIME - PATIENT 14.5 SEC (9.8-11.6)
[2017-05-02 06:43] LABS: HEMO FLAGS AUTO DIFF
[2017-05-02 07:00] LABS: BICARBONATE 23.3 MEQ/L (21.0-32.0); MAGNESIUM 2.2 MG/DL (1.5-2.5); POTASSIUM 3.9 MEQ/L (3.5-5.1)
[2017-05-02 07:02] LABS: INDIRECT BILIRUBIN 0.5 MG/DL (0.0-0.8)
[2017-05-02] MEDS: RESP: ALBUTEROL 2.5 MG/IPRATROPIUM 0.5 MG NEB (SCH) NEB (07:43)
[2017-05-02 08:21] LABS: BANDS 6 % (0-6); CORRECTED NUCLEATED RBC 4 /100 WBC (0-0); MYELOCYTES 1 % (0-0); NEUTROPHIL # MANUAL DIFF 5.3 TH/MM3 (1.8-7.7); PLATELET ESTIMATE SMEAR LOW (NORMAL); PLATELET MORPHOLOGY NORMAL (NORMAL); POLYS (SEG NEUTROPHILS) 74 % (16-70); SCAN/DIFF FINAL DIFF MANUAL; WBC DIFF SAMPLE 100
[2017-05-02 08:22] LABS: POLYCHROMASIA 2.5 % (0.0-1.9)
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
[2017-05-02] MEDS: SODIUM CHLORIDE 0.9% FLUSH 10 ML FLUSH IV FLUSH SCH ×2 (09:00→20:27)
[2017-05-02] MEDS: LISINOPRIL 10 MG TAB PO SCH (09:41)
[2017-05-02] MEDS: FUROSEMIDE 40 MG TAB PO SCH (09:41)
[2017-05-02] MEDS: SPIRONOLACTONE 25 MG TAB PO SCH (09:41)
[2017-05-02] MEDS: PANTOPRAZOLE SOD 40 MG DELAYED RELEASE TAB PO SCH (09:41)
[2017-05-02] MEDS: DOCUSATE SODIUM 50 MG/SENNA 8.6 MG TAB PO SCH ×2 (09:41→20:26)
[2017-05-02] MEDS: ASPIRIN EC 81 MG TABEC PO SCH (09:42)
[2017-05-02] MEDS: BICALUTAMIDE 50 MG TAB PO SCH (09:43)
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
--- NOTE | 2017-05-02 14:58 | RADRPT ---
EXAM DATE/TIME: 05/02/2017 08:47 CORRECTION Corrected on: May 03, 2017; Added Pain score [place] COMPARISON: CT PULMONARY ANGIOGRAM, April 28, 2017, 11:11. PRIOR BONE SCANS: No correlative bone scan available for comparison. INDICATIONS : Prostate cancer. DOSE: 33 mCi Tc99m MDP IV MEDICAL HISTORY : Hypertension. SURGICAL HISTORY : Prostatectomy. ENCOUNTER: Initial ACUITY: 3 days PAIN SCALE: 0/10 LOCATION: TECHNIQUE: Three hours post intravenous administration of radiotracer, whole body bone scan imaging was performe d. FINDINGS: Blood pool images demonstrate a homogeneous pattern of uptake in the soft tissues. No hyperemic area s are identified. Planar bone scan demonstrates diffuse bony uptake consistent with diffuse metastat ic disease/SuperScan. There is some slight decreased uptake in the mid to lower thoracic spine. Promi nent uptake noted within the right shoulder. CONCLUSION: Diffuse bony metastasis. Adam Ureña MD on May 02, 2017 at 14:53 Board Certified Radiologist. This report was verified electronically.
[2017-05-02] MEDS ORDERED: PANT40TA3 PO (15:57)
--- NOTE | 2017-05-02 20:07 | HHI.PR ---
Subjective Remarks 76 YOWM with metastatic Prostate ca, Pl eff, Nicotine use had Left TC, 750 cc fluid removed Feels breathing better Pl fluid cytology Negative Feels weak Pl fluid grew Bacillus sp, not anthrax Seen by ID, likly contaminant Objective Vital Signs Vital Signs Date Time Temp Pulse Resp B/P (MAP) Pulse Ox O2 Delivery O2 Flow Rate FiO2 05/02/17 16:00 98.0 76 22 112/66 (81) 97 05/02/17 12:00 97.7 72 20 129/81 (97) 98 05/02/17 08:00 97.7 75 20 114/75 (88) 100 05/02/17 07:43 98 21 05/02/17 04:00 85 05/02/17 04:00 98.3 81 20 136/81 (99) 97 05/02/17 00:20 97.6 81 16 119/85 (96) 96 05/02/17 00:19 84 05/02/17 00:00 Room Air 21 05/01/17 20:45 98.1 80 20 113/70 (84) 99 05/01/17 20:45 80 I/O 05/01/17 05/01/17 05/01/17 05/02/17 05/02/17 05/02/17 07:00 15:00 23:00 07:00 15:00 23:00 Intake Total 1490 ml 100 ml Output Total 200 ml 740 ml Balance -200 ml 1490 ml -640 ml Intake Oral 1440 ml IV Total 50 ml 100 ml Output Urine Total 200 ml 740 ml # Voids 4 Result Diagram: 05/02/17 0545 05/02/17 0545 Objective Remarks GENERAL: MBMN WM, NAD SKIN: Warm and dry. HEAD: Normocephalic. EYES: No scleral icterus. No injection or drainage. NECK: Supple, trachea midline. No JVD or lymphadenopathy. CARDIOVASCULAR: Regular rate and rhythm without murmurs, gallops, or rubs. RESPIRATORY: Breath sounds equal bilaterally. No accessory muscle use. GASTROINTESTINAL: Abdomen soft, non-tender, nondistended. MUSCULOSKELETAL: No cyanosis, or edema. BACK: Nontender without obvious deformity. No CVA tenderness. A/P Assessment and Plan Left Pl effusion, s/p TC COPD Metastatic Prostate ca PLAN Cardiac [place] underway Stable on RA Encourage PO intake Brian Adams MD May 02, 2017 20:07
[2017-05-03] VITALS (12 sets, daily range): BP systolic 120–128; BP diastolic 71–80; PULSE 60–85; RESP 18; TEMP 98–98.3; O2SAT 96–98
[2017-05-03 06:01] LABS: AUTOMATED NEUTROPHIL # 4.5 TH/MM3 (1.8-7.7); BASOPHIL % 0.5 % (0.0-2.0); EOSINOPHIL # 0.1 TH/MM3 (0-0.4); EOSINOPHIL % 0.8 % (0.0-4.0); HEMATOCRIT 31.2 % (39.0-51.0); LYMPH % 16.2 % (9.0-44.0); MEAN CELL VOLUME 90.1 FL (80.0-100.0); MEAN CORPUSCULAR HEMOGLOBIN 28.7 PG (27.0-34.0); MEAN CORPUSCULAR HGB CONC 31.9 % (32.0-36.0); MONO % 9.4 % (0.0-8.0); NEUT % 73.1 % (16.0-70.0); PLATELET COUNT 100 TH/MM3 (150-450); RED BLOOD COUNT 3.46 MIL/MM3 (4.50-5.90); RED CELL DISTRIBUTION WIDTH 19.7 % (11.6-17.2); WHITE BLOOD COUNT 6.2 TH/MM3 (4.0-11.0)
[2017-05-03 06:19] LABS: HEMO FLAGS AUTO DIFF
[2017-05-03 06:24] LABS: BICARBONATE 24.5 MEQ/L (21.0-32.0); MAGNESIUM 2.3 MG/DL (1.5-2.5); POTASSIUM 4.4 MEQ/L (3.5-5.1)
[2017-05-03 06:26] LABS: INDIRECT BILIRUBIN 0.4 MG/DL (0.0-0.8); TOTAL BILIRUBIN ADULT 0.7 MG/DL (0.2-1.0)
[2017-05-03 08:44] LABS: BANDS 6 % (0-6); CORRECTED NUCLEATED RBC 4 /100 WBC (0-0); EOSINOPHILS 2 % (0-4); MYELOCYTES 1 % (0-0); NEUTROPHIL # MANUAL DIFF 5.2 TH/MM3 (1.8-7.7); POLYS (SEG NEUTROPHILS) 77 % (16-70); WBC DIFF SAMPLE 100
[2017-05-03 08:49] LABS: PLATELET ESTIMATE SMEAR LOW (NORMAL); PLATELET MORPHOLOGY ENLARGED (NORMAL)
[2017-05-03 08:50] LABS: ACANTHOCYTES OCC (NORMAL); OVALOCYTES 1+ (NORMAL); SCAN/DIFF FINAL DIFF MANUAL
[2017-05-03] MEDS: DOCUSATE SODIUM 50 MG/SENNA 8.6 MG TAB PO SCH (09:00)
[2017-05-03] MEDS: PANTOPRAZOLE SOD 40 MG DELAYED RELEASE TAB PO SCH (10:09)
[2017-05-03] MEDS: SPIRONOLACTONE 25 MG TAB PO SCH (10:09)
[2017-05-03] MEDS: BICALUTAMIDE 50 MG TAB PO SCH (10:09)
[2017-05-03] MEDS: LISINOPRIL 10 MG TAB PO SCH (10:10)
[2017-05-03] MEDS: FUROSEMIDE 40 MG TAB PO SCH (10:10)
[2017-05-03] MEDS: ASPIRIN EC 81 MG TABEC PO SCH (10:10)
[2017-05-03] MEDS: SODIUM CHLORIDE 0.9% FLUSH 10 ML FLUSH IV FLUSH SCH (10:11)
[2017-05-03] MEDS ORDERED: BICA50TA PO (10:59)
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
== END 2017-05-03 13:13 | disposition home or self-care (01) | DRG 291 ==
LOC: NEPE 09:14 → NEDA 12:21 → N04B 15:01 → HCIS 04-29 18:46
PROVIDERS: ADMIT Internal Medicine; ATTEND Internal Medicine
PROC: 0W9B3ZZ Drainage of Left Pleural Cavity, Percutaneous Approach (ICD-10-PCS; principal; 2017-04-29)
DX: I11.0 Hypertensive heart disease with heart failure (principal); E43 Unspecified severe protein-calorie malnutrition; I50.21 Acute systolic (congestive) heart failure; N17.9 Acute kidney failure, unspecified; C79.51 Secondary malignant neoplasm of bone; D68.9 Coagulation defect, unspecified; R18.8 Other ascites; I42.9 Cardiomyopathy, unspecified; J98.11 Atelectasis; Z68.1 Body mass index [BMI] 19.9 or less, adult; I27.20 Pulmonary hypertension, unspecified; C61 Malignant neoplasm of prostate; J44.9 Chronic obstructive pulmonary disease, unspecified; R13.13 Dysphagia, pharyngeal phase; K72.90 Hepatic failure, unspecified without coma; N28.1 Cyst of kidney, acquired; R74.8 Abnormal levels of other serum enzymes; Z85.46 Personal history of malignant neoplasm of prostate; Z80.1 Family history of malignant neoplasm of trachea, bronchus and lung; Z82.5 Family history of asthma and other chronic lower respiratory diseases; Z87.891 Personal history of nicotine dependence; I25.10 Atherosclerotic heart disease of native coronary artery without angina pectoris; D63.8 Anemia in other chronic diseases classified elsewhere; Z90.79 Acquired absence of other genital organ(s); I08.3 Combined rheumatic disorders of mitral, aortic and tricuspid valves; Z51.5 Encounter for palliative care; K21.9 Gastro-esophageal reflux disease without esophagitis; K76.1 Chronic passive congestion of liver
CPT/HCPCS: 32554; 71010; 71275; 74177; 74181; 76377; 76604; 76700; 76705; 78306; 78452; 80048; 80053; 80074; 80076; 81001; 82040; 82105; 82150; 82378; 82550; 82552; 82607; 82728; 82746; 82945; 83540; 83550; 83615; 83735; 83880; 83986; 84134; 84153; 84155; 84157; 84484; 85007; 85025; 85027; 85044; 85379; 85384; 85610; 85730; 86301; 87015; 87070; 87102; 87116; 87205; 87206; 89051; 93005; 93017; 93306; 94150; 94640; 94664; A9502; A9503; J1644; J2543; J2785; J7613; Q9967

== ENCOUNTER 2017-05-16 17:38 | Emergency (ER) | payer SELFPAY ==
[~2017-05-16] VITALS: Ht 172.7 cm; Wt 48.0 kg
[~2017-05-16 17:38] MED LIST: ASPI1TAB56 PO; BICA50TA PO; FURO40TA PO; IOHEXOL 350 MG/ML 10 ML VIAL (for RAD DIAG) IVCONTRAST ONE; LISI10TA3 PO; PANT40TA3 PO; SPIR25 PO; VENTAER INH
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
[2017-05-16 17:46] VITALS: BP 205/91; PULSE 97; RESP 22; TEMP 98.7; O2SAT 99
[2017-05-16] MEDS ORDERED: METO25TA3 PO (17:52)
[2017-05-16] MEDS ORDERED: SODIUM CHLORIDE 0.9% FLUSH 10 ML FLUSH IVF PRN (18:15)
[2017-05-16] MEDS ORDERED: RESP: ALBUTEROL 2.5 MG/IPRATROPIUM 0.5 MG NEB (SCH) NEB ONE (18:15)
[2017-05-16 18:45] LABS: BASOPHIL # 0.1 TH/MM3 (0-0.2); BASOPHIL % 0.8 % (0.0-2.0); EOSINOPHIL # 0.1 TH/MM3 (0-0.4); EOSINOPHIL % 0.9 % (0.0-4.0); HEMATOCRIT 36.7 % (39.0-51.0); HEMO FLAGS DIFF FINAL; LYMPH % 20.6 % (9.0-44.0); LYMPHOCYTE # 2.1 TH/MM3 (1.0-4.8); MEAN CELL VOLUME 91.8 FL (80.0-100.0); MEAN CORPUSCULAR HEMOGLOBIN 29.2 PG (27.0-34.0); MEAN CORPUSCULAR HGB CONC 31.9 % (32.0-36.0); MONO % 8.1 % (0.0-8.0); NEUT % 69.6 % (16.0-70.0); PLATELET COUNT 274 TH/MM3 (150-450); RED CELL DISTRIBUTION WIDTH 21.7 % (11.6-17.2); WHITE BLOOD COUNT 10.1 TH/MM3 (4.0-11.0)
[2017-05-16 18:53] LABS: ALT (GPT) 27 U/L (12-78)
[2017-05-16 19:00] VITALS: O2SAT 99
[2017-05-16 19:07] LABS: ALKALINE PHOSPHATASE 927 U/L (45-117); TOTAL BILIRUBIN ADULT 0.7 MG/DL (0.2-1.0)
[2017-05-16 19:10] LABS: ANION GAP 12 MEQ/L (5-15); AST (GOT) 29 U/L (15-37); BICARBONATE 24.7 MEQ/L (21.0-32.0); BLOOD UREA NITROGEN 19 MG/DL (7-18); CHLORIDE 104 MEQ/L (98-107); GLOMERULAR FILTRATION RATE 70 ML/MIN (>89); POTASSIUM 4.7 MEQ/L (3.5-5.1); SODIUM (NA) 141 MEQ/L (136-145)
--- NOTE | 2017-05-16 20:13 | RADRPT ---
EXAM DATE/TIME: 05/16/2017 19:07 [facility] COMPARISON: CHEST SINGLE AP, April 29, 2017, 16:53. INDICATIONS : Short of breath. MEDICAL HISTORY : Carcinoma, prostatic. Hypertension SURGICAL HISTORY : None. ENCOUNTER: Initial ACUITY: 1 day PAIN SCORE: 0/10 LOCATION: Bilateral chest FINDINGS: The heart size is normal. There is increased density at the left base. There are diffuse sclerotic le sions throughout the visualized bony structures. There is a metallic density in the posterior left up per quadrant. CONCLUSION: 1. Left lower lobe atelectasis or consolidation. 2. Diffuse sclerotic bone lesions. Andrea Parker MD on May 16, 2017 at 20:10 Board Certified Radiologist. This report was verified electronically.
--- NOTE | 2017-05-16 20:45 | RADRPT ---
EXAM DATE/TIME: 05/16/2017 19:35 [facility] COMPARISON: INDICATIONS : Shortness of breath. IV CONTRAST: 73 cc Omnipaque 350 (iohexol) IV RADIATION DOSE: 18.84 CTDIvol (mGy) MEDICAL HISTORY : Carcinoma, prostate. Cardiovascular disease Hypertension. SURGICAL HISTORY : Prostatectomy. ENCOUNTER: CT PULMONAR. Y ANGIOGRAM, April 28, 2017, 11:11 ACUITY: 1 day PAIN SCALE: 0/10 LOCATION: Bilateral chest TECHNIQUE: Volumetric scanning of the chest was performed using a pulmonary embolism protocol MIP images were re constructed. Using automated exposure control and adjustment of the mA and/or kV according to patien t size, radiation dose was kept as low as reasonably achievable to obtain optimal diagnostic quality images. DICOM format image data is available electronically for review and comparison. Follow-up recommendations for detected pulmonary nodules are based at a minimum on nodule size and pa tient risk factors according to Fleischner Society Guidelines. FINDINGS: PULMONARY ARTERIES: There are small pulmonary emboli seen in the pulmonary supplying the right upper lobe and the lateral basilar segment of the right lower lobe. LUNGS: There are multiple small ill-defined patchy areas of increased density seen in the right upper lobe. There is atelectasis or consolidation of the left lower lobe adjacent to a mild left pleural effusion . PLEURAE: There is a mild left pleural effusion. There is a minimal right pleural effusion. MEDIASTINUM: There is good visualization of the great vessels of the middle mediastinum. No evidence of mediastin al or hilar adenopathy/mass. Coronary artery calcifi shunt are present. MUSCULOSKELETAL: There are widespread sclerotic lesions throughout all visualized bony structures. MISCELLANEOUS: The visualized upper abdominal organs demonstrate no acute abnormality. CONCLUSION: 1. Mild pulmonary emboli seen in the right upper and right lower lobes. 2. Multiple small patchy residual defined as seen in the right upper lobe likely representing inflamm atory change/bronchopneumonia. 3. Mild left and minimal right pleural effusions. 4. Diffuse sclerotic bone lesions. Andrea Parker MD on May 16, 2017 at 20:41 Board Certified Radiologist. This report was verified electronically.
--- NOTE | 2017-05-16 21:02 | PD ---
Physical Exam Date Seen by Provider: May 16, 2017 Time Seen by Provider: 20:59 Narrative 76-year-old male came to the emergency room for shortness of breath. Patient has metastatic cancer into his bones and lungs. However patient says that this started all of a sudden when he was running errands this morning. Patient has not started any chemotherapy yet. He was seen by the previous ER physician. Please refer to his history and physical for further details. The sign out was to follow-up on the CAT scan to rule out pulmonary emboli. The CT scan report just came back that shows mild pulmonary emboli as per the radiologist. Patient is saturating well oxygen-hartley. I went to see him and he looks emaciated but does not appear to be in any severe distress. I discussed with him about the blood clots. I let him know that these are most probably due to the cancer. I'm comfortable putting him on oral anticoagulant-like Xarelto or Eliquis and discharging him home. Patient seems to be okay with that plan. I will give him a dose of that medication here before discharging. Data Data Last Documented VS Orders Orders Electrocardiogram (05/16/17 18:11) Complete Blood Count With Diff (05/16/17 18:11) Comprehensive Metabolic Panel (05/16/17 18:11) Chest, Pa & Lat (05/16/17 18:11) Sodium Chloride 0.9% Flush (Ns Flush) (05/16/17 18:15) Troponin I (05/16/17 18:11) Iv Access Insert/Monitor (05/16/17 18:11) Oximetry (05/16/17 18:11) Oxygen Administration (05/16/17 18:11) Albuterol-Ipratropium Neb (Duoneb Neb) (05/16/17 18:15) Ct Pulmonary Angiogram (05/16/17 ) Iohexol 350 Inj (Omnipaque 350 Inj) (05/16/17 14:42) Apixaban (Eliquis) (05/16/17 21:15) Ed Discharge Order (05/16/17 21:14) Labs Laboratory Tests Test 05/16/17 18:30 White Blood Count 10.1 TH/MM3 Red Blood Count 4.00 MIL/MM3 Hemoglobin 11.7 GM/DL Hematocrit 36.7 % Mean Corpuscular Volume 91.8 FL Mean Corpuscular Hemoglobin 29.2 PG Mean Corpuscular Hemoglobin Concent 31.9 % Red Cell Distribution Width 21.7 % Platelet Count 274 TH/MM3 Mean Platelet Volume 7.5 FL Neutrophils (%) (Auto) 69.6 % Lymphocytes (%) (Auto) 20.6 % Monocytes (%) (Auto) 8.1 % Eosinophils (%) (Auto) 0.9 % Basophils (%) (Auto) 0.8 % Neutrophils # (Auto) 7.0 TH/MM3 Lymphocytes # (Auto) 2.1 TH/MM3 Monocytes # (Auto) 0.8 TH/MM3 Eosinophils # (Auto) 0.1 TH/MM3 Basophils # (Auto) 0.1 TH/MM3 CBC Comment DIFF FINAL Differential Comment Blood Urea Nitrogen 19 MG/DL Creatinine 1.03 MG/DL Random Glucose 127 MG/DL Total Protein 7.2 GM/DL Albumin 3.0 GM/DL Calcium Level 8.0 MG/DL Alkaline Phosphatase 927 U/L Aspartate Amino Transf (AST/SGOT) 29 U/L Alanine Aminotransferase (ALT/SGPT) 27 U/L Total Bilirubin 0.7 MG/DL Sodium Level 141 MEQ/L Potassium Level 4.7 MEQ/L Chloride Level 104 MEQ/L Carbon Dioxide Level 24.7 MEQ/L Anion Gap 12 MEQ/L Estimat Glomerular Filtration Rate 70 ML/MIN Troponin I 0.13 NG/ML MDM Supervised Visit with [facility]: No Diagnosis Primary Impression: Pulmonary emboli Qualified Codes: I26.99 - Other pulmonary embolism without acute cor pulmonale Additional Impressions: Shortness of breath Metastatic cancer Referrals: Primary Care Physician Additional Instruction: Please return to the ER if the condition worsens or any other new concerns. Take the medication as per the prescription direction. Please use the coupon provided to you from ER along with a prescription to get a month of free supply. Follow-up with your primary care and your cancer doctor. Med/Other Pt SpecificInfo: Prescription(s) given Scripts Apixaban (Eliquis) 5 Mg Tab 5 MG PO BID for Blood Clot Prevention, #60 TAB 0 Refills Prov: Sushila Brown MD 05/16/17 Disposition: 01 DISCHARGE HOME Condition: Stable Sushila Brown MD May 16, 2017 21:02
[2017-05-16] MEDS ORDERED: APIX5TAB PO (21:08)
[2017-05-16] MEDS ORDERED: APIXABAN 5 MG TABLET PO ONE (21:15)
[2017-05-16 21:30] VITALS: BP 179/85; PULSE 72; RESP 22; O2SAT 95
--- NOTE | 2017-05-17 17:38 | EKG ---
Date Performed: 05/16/2017 Time Performed: 18:42:58 PTAGE: 76 years EKG: Sinus rhythm WITH SINUS ARRHYTHMIA POSSIBLE LEFT ATRIAL ENLARGEMENT LEFT VENTRICULAR HYPERTROPHY AND ST-T CHANGE ABNORMAL ECG PREVIOUS TRACING 04/28/17 Since the prior tracing, there has been an increase in heart rate an d an increase in the lateral ST depression. The increase in the ST depression probably just reflects left ventricular hypertrophy, but myocardial ischemia should be excluded clinically. DOCTOR: Priyanka Michel Interpretating Date/Time 05/17/2017 17:38:39
== END 2017-05-16 21:42 | disposition home or self-care (01) ==
LOC: NEPE 17:38
DX: I26.99 Other pulmonary embolism without acute cor pulmonale (principal); R06.02 Shortness of breath; C61 Malignant neoplasm of prostate; I10 Essential (primary) hypertension; F17.290 Nicotine dependence, other tobacco product, uncomplicated; Z79.82 Long term (current) use of aspirin; Z79.899 Other long term (current) drug therapy
CPT/HCPCS: 71020; 71275; 80053; 84484; 85025; 93005; 94664; 99285; Q9967

== ENCOUNTER 2017-08-28 15:51 | Emergency (ER) | payer SELFPAY ==
[~2017-08-28 15:51] MED LIST changes: +APIX5TAB PO; -BICA50TA PO; -IOHEXOL 350 MG/ML 10 ML VIAL (for RAD DIAG) IVCONTRAST ONE; +METO25TA3 PO; -PANT40TA3 PO; -VENTAER INH
[2017-08-28] MEDS ORDERED: EPINEPHrine HCL (1:10,000) 1 MG/10 ML SYRINGE IV ONE (15:52)
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
== END 2017-08-28 19:45 | disposition expired ==
LOC: NEPC 15:51 → NEPI 19:45
DX: I46.9 Cardiac arrest, cause unspecified (principal); I25.10 Atherosclerotic heart disease of native coronary artery without angina pectoris; I10 Essential (primary) hypertension; Z85.46 Personal history of malignant neoplasm of prostate; Z79.82 Long term (current) use of aspirin; Z79.899 Other long term (current) drug therapy
CPT/HCPCS: 92950; 99285; J0171